=== PATIENT | female | born 1940 | race Caucasian/White ===

== ENCOUNTER 2017-01-10 20:20 | Emergency (ER) | payer MEDICARE ==
[~2017-01-10] VITALS: Ht 152.4 cm; Wt 68.6 kg
[2017-01-10 20:23] VITALS: BP 146/96; PULSE 97; RESP 21; O2SAT 96
--- NOTE | 2017-01-10 20:40 | ED.REPORT ---
HPI-Chest Pain 40 and Over Date of Service Jan 10, 2017 ED Provider: Terrance Abreu MD Pt is a 60 y/o female anticoagulated on Warfarin w/ a hx of a-fib, HTN, CHF, recurrent DVT's, presenting to the ED via EMS c/o rapid palpitations onset 1 hour ago. The patient was diagnosed with a-fib recently and has been on Warfarin for many years due to recurrent DVTs. She was placed on Diltiazem 1 month ago. During this episode of palpitations, she experienced associated headache, chest pressure, SOB, nausea. She has also been experiencing progressively worsening fatigue for the past week. Pt denies cough, nasal congestion. She is feeling much improved at time of interview. Nursing Notes Stated Complaint: PALPITATIONS,WEAKNESS Chief Complaint: Dysrhythmia/Cardiac Nursing Notes Reviewed: Yes Allergies: Coded Allergies: Penicillins (Verified Allergy, Intermediate, Rash, 01/10/17) Scheduled Atorvastatin (Lipitor) 20 Mg Tablet 40 MG PO HS Diltiazem (Diltiazem) 120 Mg Tablet 120 MG PO DAILY Indapamide (Indapamide) 1.25 Mg Tablet 0 PO DAILY Losartan Potassium (Losartan Potassium) 50 Mg Tablet 50 MG PO DAILY Warfarin Sodium (Warfarin Sodium) 5 Mg Tablet 10 MG PO daily exc sun, thur Warfarin Sodium (Warfarin Sodium) 2.5 Mg Tablet 12.5 MG PO sun and thurs Scheduled PRN Oxycodone (Roxicodone) 5 Mg Tablet 10 MG PO Q4H PRN PRN For Pain General Time Seen by MD: 20:38 Chief Complaint Other (palps) Hx Obtained From: Patient, EMS Arrived By: Ambulance Sudden in Onset?: Yes Onset Occurred: 1 - 4 hours ago Symptom Duration: 16 - 30 minutes Location: : Substernal Quality: Pressure Radiation: : Does not radiate Severity: Current: Mild Severity: Maximum: Mild Recent Healthcare: Previous diagnosis, Prior workup Similar Sx Previous: Yes Past Medical History Past Medical History A-fib Recurrent DVTs - on Warfarin CHF HTN Past Surgical History Cholecystectomy Hysterectomy Cystocele Rectocele Foot Smoking History Unknown if Ever Smoker Social History Alcohol Use: "Social" Ambulatory Status Independent Review of Systems Constitutional: Reports: Fatigue, Denies: Chills, Fever Respiratory: Reports: Shortness of breath, Denies: Non-productive cough Cardiovascular: Reports: Chest pain, Palpitations GI: Reports: Nausea, Denies: Abdominal pain, Diarrhea, Vomiting Neurologic: Reports: Headache, Lightheaded, Denies: Focal weakness, Numbness Complete sys rev & neg: except as marked. Physical Exam Initial Vital Signs Vital Signs (First) Date Time Temp Pulse Resp B/P Pulse Ox O2 Delivery O2 Flow Rate FiO2 01/10/17 20:23 36.7 97 21 146/96 96 Room Air Initial VS: Reviewed, Vital signs normal Head / Eyes: Atraumatic, Normocephalic, PERRL ENT: Mucous membranes moist, Conjunctiva normal, No scleral icterus Neck: Supple, Full range of motion Extremities: Vascular intact, Neuro intact, No swelling, No tenderness Skin: Warm, Dry, No cyanosis Neurologic: Alert, Oriented, Nonfocal Psychiatric: Mood/affect normal, Behavior normal, Normal thought content General/Constitutional: Awake, Alert, No acute distress, Cooperative, Not toxic appearing Respiratory / Chest: Atraumatic, Breath sounds NL, Breath sounds = bilat, No respiratory distress, No rales, No rhonchi, No wheezing, No retractions, No stridor, No chest tenderness, No chest wall deformity, No crepitus Cardiovascular: Heart rate NL, Heart sounds NL, No gallop, No murmurs, No rubs , Cap refill not delayed, Peripheral circulation NL Heart Rate / Rhythm: Positive: Irreg irregular rhythm Lower Ext Edema: Positive: Bilateral 1+ Abdomen: Atraumatic, Soft, Non-tender, No guarding, No rebound, No distention, No palpable mass Interpretation & Diagnostics Lab Results Interpretation Result Diagram: 01/10/17202401/10/172024 Test 01/10/17 20:25 01/10/17 22:21 White Blood Count 8.1th/mm3 (3.8-10.1) Red Blood Count 4.65mil/mm3 (3.90-5.20) Hemoglobin 13.4g/dL (12.0-15.6) Hematocrit 39.9% (35.0-46.0) Mean Corpuscular Volume 85.8fL (81-100) Mean Corpuscular Hemoglobin 28.8pg (27.0-35.0) Mean Corpuscular Hemoglobin Concent 33.6% (32.0-37.0) Red Cell Distribution Width 14.2% (12.3-15.4) Platelet Count 287bil/L (150-400) Neutrophils (%) (Auto) 55.2% (40-74) Lymphocytes (%) (Auto) 30.8% (14-46) Monocytes (%) (Auto) 8.8% (4-12) Eosinophils (%) (Auto) 4.4% (0-5) Basophils (%) (Auto) 0.7% (0-3) Hold Purple Top Tube Received (Received) Prothrombin Time 28.9sec (8.1-12.5) Prothromb Time International Ratio 2.65ratio Hold Blue Top Tube Received (Received) Sodium Level 135mEq/L (134-144) Potassium Level 3.7mEq/L (3.5-5.2) Chloride Level 95mEq/L (97-108) Carbon Dioxide Level 24mmol/L (18-29) Blood Urea Nitrogen 9mg/dL (8-27) Creatinine 0.55mg/dL (0.57-1.00) Estimat Glomerular Filtration Rate 154mL/min (>59) Glucose Level 102mg/dL (60-99) Calcium Level 9.7mg/dL (8.5-10.1) Magnesium Level 1.6mg/dL (1.6-2.6) Total Bilirubin 0.4mg/dL (0.0-1.2) Aspartate Amino Transf (AST/SGOT) 19U/L (0-50) Alanine Aminotransferase (ALT/SGPT) 13U/L (0-32) Alkaline Phosphatase 71U/L (25-165) Total Protein 7.2g/dL (6.4-8.4) Albumin 4.2g/dL (3.4-5.0) Hold Red Top Tube Received (Received) Hold [place] Top Tube Received (Received) Troponin T 0.010ug/L (0.0-0.011) ECG Interpretation ECG Interpretation: A-fib rate 91 RBBB Time: 21:18 Interpreted by: ED physician Normal ECG Interpretation: No acute ischemic changes X-Ray Chest Interpretation Chest Xray Interpretation: IMPRESSION: No acute disease Dictated by: Bobby Aponte M.D. on 01/10/2017 at 21:18 Approved by: Bobby Aponte M.D. on 01/10/2017 at 21:19 View: Portable, 1 view Interpretation / Wet Read by: Interpret - Radiologist Re-Eval/Medical Decision Med Decision/Clinical Course 77-year-old female history of atrial fibrillation recently diagnosed several weeks ago on warfarin presenting with palpitations earlier today. She felt much better by the time of arrival. Her troponins were negative 2. She is therapeutic INR. EKG unremarkable. She had no RVR while she was here. Patient was discharged home with plans to follow up with primary doctor on Thursday. Return precautions given. Time of Eval: 22:57 Re-Evaluation/Progress Note: Pt rechecked. Discussed negative results. Informed pt of plan for treatment. Pt understands and agrees with plan for treatment. F/U instructions and RTER warnings given. All questions addressed. Counseled Regarding: Diagnosis, Lab results, Need for follow-up, When/why to return to ED Discharge & Departure Primary Impression: Atrial fibrillation Atrial fibrillation type: unspecified Qualified Code: I48.91 - Unspecified atrial fibrillation Additional Impression: Palpitations Disposition: Home Discharge Condition All VS Reviewed: Yes Condition: Stable Patient Instructions: Atrial Fibrillation (ED) Additional Instructions: Your labs and chest x-ray today were normal. Your EKG showed that you were in atrial fibrillation at a low rate. There was no sign of heart attack or heart damage. Return to the emergency department for persistent palpitations, chest pain, trouble breathing, or for other concerning symptoms. Follow-up with your primary care doctor as scheduled on Thursday. Referrals: Josh Nye ND Attestation Portions of this note were transcribed by Steven Spicer. I, Dr. Abreu, personally performed the history, physical exam and medical decision-making; I reviewed and confirmed the accuracy of the information in the transcribed note. Signed by Hodan Hill, 01/10/172129 copies to: Josh Nye ND, Ben M MD Jan 10, 2017 20:40 STEVEN SPICER Jan 10, 2017 21:08
[2017-01-10] MEDS ORDERED: WARF2.5T82 PO (20:43)
[2017-01-10] MEDS ORDERED: OXYC-474 PO (20:43)
[2017-01-10] MEDS ORDERED: WARF5TAB7 PO (20:43)
[2017-01-10] MEDS ORDERED: ATOR20TA PO (20:43)
[2017-01-10] MEDS ORDERED: DILT120T3 PO (20:43)
[2017-01-10] MEDS ORDERED: LOSA50TA37 PO (20:43)
[2017-01-10] MEDS ORDERED: INDA1.252 PO (20:43)
[2017-01-10 20:53] LABS: BASOPHILS % (AUTO) 0.7 % (0-3); EOSINOPHILS % (AUTO) 4.4 % (0-5); MONOCYTES % (AUTO) 8.8 % (4-12); Mean Corpuscular Hemoglobin 28.8 pg (27.0-35.0); Mean Corpuscular Volume 85.8 fL (81-100); NEUTROPHILS % (AUTO) 55.2 % (40-74); Platelet Count 287 bil/L (150-400)
[2017-01-10 21:07] LABS: TROPONIN T < 0.010 ug/L (0.0-0.011)
[2017-01-10 21:15] LABS: Magnesium 1.6 mg/dL (1.6-2.6)
--- NOTE | 2017-01-10 21:20 | DRSVH ---
CORRECTED PATIENT ON 01/12/17 PROCEDURE: X-RAY CHEST ONE VIEW, PORTABLE ([id number]) INDICATIONS: a-fib TECHNIQUE: One view of the chest was acquired. COMPARISON: None. FINDINGS: Surgical changes and devices: None. Lungs and pleura: No pleural effusions or pneumothorax. Lungs are clear. Mediastinum: Mediastinal contours appear normal. Heart size is normal. Bones and chest wall: No suspicious bony lesions. Overlying soft tissues appear unremarkable. Poss ible bone island projecting in the proximal left humerus IMPRESSION: No acute disease Dictated by: Bobby Aponte M.D. on 01/10/2017 at 21:18 Approved by: Bobby Aponte M.D. on 01/10/2017 at 21:19
[2017-01-10 21:24] LABS: INR 2.65 ratio
[2017-01-10 21:30] VITALS: BP 148/93; PULSE 91; RESP 18; O2SAT 95
[2017-01-10 22:30] VITALS: BP 128/76; PULSE 89; RESP 18; O2SAT 94
[2017-01-10 23:16] VITALS: BP 139/97; PULSE 90; RESP 18; O2SAT 93
== END 2017-01-10 23:19 | disposition home or self-care (01) ==
LOC: SED 20:20
DX: I48.91 Unspecified atrial fibrillation (principal); R00.2 Palpitations; I10 Essential (primary) hypertension; I50.9 Heart failure, unspecified; Z86.718 Personal history of other venous thrombosis and embolism; Z79.01 Long term (current) use of anticoagulants; Z88.0 Allergy status to penicillin

== ENCOUNTER 2017-04-21 21:05 | Inpatient (IN) | payer MEDICARE ==
[~2017-04-21] VITALS: Ht 154.9 cm; Wt 72.5 kg
[~2017-04-21 21:05] MED LIST: ATOR20TA PO; DILT120T3 PO; INDA1.252 PO; LOSA50TA37 PO; OXYC-474 PO; WARF2.5T82 PO; WARF5TAB7 PO
[2017-04-21 21:06] VITALS: BP 149/64; PULSE 110; RESP 18; O2SAT 100
[2017-04-21] MEDS ORDERED: DILT120C52 PO (21:14)
[2017-04-21] MEDS ORDERED: LATA2.5D6 BOTH_EYES (21:14)
[2017-04-21] MEDS ORDERED: FLUT16SP NASAL (21:14)
[2017-04-21 21:24] LABS: BASOPHILS % (AUTO) 0.5 % (0-3); EOSINOPHILS % (AUTO) 3.4 % (0-5); MONOCYTES % (AUTO) 6.8 % (4-12); Mean Corpuscular Hemoglobin 29.1 pg (27.0-35.0); Mean Corpuscular Volume 91.6 fL (81-100); NEUTROPHILS % (AUTO) 63.6 % (40-74); Platelet Count 291 bil/L (150-400)
[2017-04-21 21:43] LABS: INR 2.01 ratio
[2017-04-21 22:08] VITALS: BP 132/62; PULSE 91; RESP 16; O2SAT 97
[2017-04-21] MEDS ORDERED: Ondansetron 2 mg/mL 2 mL Inj ONE (22:18)
[2017-04-21] MEDS: HYDROmorphone 0.5 mg/0.5 mL iSecure Syringe IVPUSH PRN ×2 (22:36→23:41)
[2017-04-21 23:00] VITALS: BP 128/56; PULSE 93; RESP 18; O2SAT 97
--- NOTE | 2017-04-21 23:18 | ED.REPORT ---
HPI-GI Bleed Date of Service Apr 21, 2017 ED Provider: Roberth Loza MD The patient is a 77 year old female with a history of PE, CVA, hypertension, and atrial fibrillation on Coumadin who presents to the ED via EMS with hematochezia onset nine days ago. The bleeding was initially heavy with clotting , but has improved since last week. Associated symptoms include diffuse abdominal pain and diarrhea. The patient also became nauseous and vomited this morning. She denies other symptoms. The patient has taken Imodium with some relief. EMS found the patient with a BP of 154/80, a pulse of 100, and otherwise normal vital signs. The patient was seen by her PCP last week who did not want to change her Coumadin dosage until she was seen by a licensed nuclear operator, who she has an appointment with this week. Nursing Notes Stated Complaint: RECTAL BLEEDING, FLUE LIKE SYMPTOMS Chief Complaint: General Complaint Nursing Notes Reviewed: Yes Allergies: Coded Allergies: Penicillins (Verified Allergy, Intermediate, Rash, 01/10/17) Scheduled Atorvastatin Calcium (Atorvastatin Calcium) 10 Mg Tablet 10 MG PO HS Diltiazem ER (Cartia XT) 120 Mg Cap.er.24h 120 MG PO BID Indapamide (Indapamide) 1.25 Mg Tablet 1.25 MG PO DAILY Latanoprost (Latanoprost) 2.5 Ml Drops 1 DROP BOTH_EYES HS Losartan Potassium (Losartan Potassium) 50 Mg Tablet 50 MG PO DAILY Warfarin Sodium (Warfarin Sodium) 5 Mg Tablet 10 MG PO daily except thursday Warfarin Sodium (Warfarin Sodium) 2.5 Mg Tablet 12.5 MG PO thursday Scheduled PRN Fluticasone Propionate (Fluticasone Propionate Nasal) 16 Gm [place].susp 1 SPRAY NASAL DAILY PRN PRN For Congestion Oxycodone (Roxicodone) 5 Mg Tablet 10 MG PO Q4H PRN PRN For Pain General Time Seen by Provider: 22:25 Chief Complaint Chief Complaint: Other (Hematochezia) Hx Obtained From: Patient Arrived By: Walk-in Onset Occurred: More than a week ago... (9 days) Symptom Duration: Since onset Progression Since Onset: Gradually improving Location: : Diffuse Quality: Painful Severity: Current: Moderate Severity: Maximum: Moderate Pertinent Negative: Relieved by nothing Immunizations: Unknown Recent Healthcare: Recent doctor visit Past Medical History Past Medical History Atrial fibrillation PE (2007) CHF HTN CVA (08/2016) Chronic back pain Past Surgical History Cholecystectomy Hysterectomy Cystocele Rectocele Foot Smoking History Unknown if Ever Smoker Social History Alcohol Use: "Social" Ambulatory Status Independent Review of Systems Constitutional: Denies: Fever Respiratory: Denies: Non-productive cough, Shortness of breath GI: Reports: Abdominal pain (Diffuse), Diarrhea, Hematochezia, Nausea, Vomiting Complete sys rev & neg: except as marked. Physical Exam Initial Vital Signs Vital Signs (First) Date Time Temp Pulse Resp B/P Pulse Ox O2 Delivery O2 Flow Rate FiO2 04/21/17 21:06 37.0 110 18 149/64 100 Room Air Initial VS: Reviewed, Vital signs abnormal Head / Eyes: Atraumatic, Normocephalic ENT: Conjunctiva normal, No scleral icterus Neck: Supple, Full range of motion Skin: Warm, Dry, No cyanosis Neurologic: Alert, Oriented, Nonfocal Psychiatric: Mood/affect normal, Behavior normal, Normal thought content General/Constitutional: Awake, Alert, No acute distress Respiratory / Chest: Breath sounds NL, Breath sounds = bilat, No respiratory distress Cardiovascular: Heart rate NL, Heart sounds NL Heart Rate / Rhythm: Positive: Irreg irregular rhythm Lower Ext Edema: Positive: Bilateral 1+, Pitting Abdomen: Soft Tenderness/Guarding/Rebound: Positive: Tender diffuse Interpretation & Diagnostics Lab Results Interpretation Result Diagram: 04/22/17 0440 04/22/17 0440 Test 04/21/17 21:10 Total Bilirubin 0.6mg/dL (0.0-1.2) Aspartate Amino Transf (AST/SGOT) 20U/L (0-50) Alanine Aminotransferase (ALT/SGPT) 17U/L (0-32) Alkaline Phosphatase 72U/L (25-165) Total Protein 6.7g/dL (6.4-8.4) Albumin 3.6g/dL (3.4-5.0) Lab Results Interpretation: Anemia, moderately severe and acute. Hypokalemia. 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 Extrahepatic biliary dilatation, which is nonspecific following cholecystectomy. If there are clinical and laboratory signs of biliary obstruction, an MRCP can be performed to further evaluate. Moderate colonic stool. Report transmitted to the Ed by radiologist Yi Garcia M.D. at 04/22/2017 - 1:16:20 AM PDT Study type: Abdominal CT IV contrast Interpretation / Wet Read by: Interpret - Radiologist Re-Eval/Medical Decision Med Decision/Clinical Course 77-year-old female with a history of atrial fibrillation, colonic polyps, PE, and previous stroke now on Coumadin. She began having red blood per rectum with clots about a week ago. She saw her primary doctor stated that she needed a nonemergent colonoscopy that should wait until she has had further cardiology evaluation of her atrial fibrillation. He further stated that she should continue her Coumadin because of the risk of stroke. Laboratory evaluation showed severe anemia and an INR of 2.01. She was typed and crossed for 2 units and transfused with 4 units of FFP. Her case was discussed Dr. Pathak, gastroenterology. She will be set up for colonoscopy. She will be admitted to the hospitalist service for further evaluation. Source of Hx: Old records Re-Evaluation/Progress : Time of Eval: 23:00 Patient Status: Condition improved Re-Evaluation/Progress Note: Discussed with patient lab results, diagnosis, and plan for CT and admit. Patient agrees with plan for care and all questions were addressed. Consultation #1: Referral / Consult Name: Stanley Pathak MD Call Returned at: 23:10 Supervisor [employer]: Agrees with eval, Agrees with plan Note: GI: Will consult Consultation #2: Referral / Consult Name: Jean Marie Valadez MD Consulted With: Hospitalist Call Returned at: 23:14 Supervisor [employer]: Agrees with eval, Agrees with plan, Accepts admit Counseled Regarding: Diagnosis, Lab results, Need for admission Discharge & Departure Impression: Primary Impression: GI bleed GI bleed type/associated pathology: unspecified gastrointestinal hemorrhage type Qualified Code: K92.2 - Gastrointestinal hemorrhage, unspecified Additional Impressions: Anemia Atrial fibrillation Anticoagulated on Coumadin Disposition: ADMITTED TO HOSPITAL Discharge Condition All VS Reviewed: Yes Condition: Improved Referrals: Josh Nye ND (PCP) Hodan Attestation Portions of this note were transcribed by Simin Fuentes. I, Dr. Loza, personally performed the history, physical exam, and medical decision-making; I reviewed and confirmed the accuracy of the information in the transcribed note. 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 Extrahepatic biliary dilatation, which is nonspecific following cholecystectomy. If there are clinical and laboratory signs of biliary obstruction, an MRCP can be performed to further evaluate. Moderate colonic stool. Report transmitted to the Ed by radiologist Yi Garcia M.D. at 04/22/2017 - 1:16:20 AM PDT Study type: Abdominal CT IV contrast Interpretation / Wet Read by: Interpret - Radiologist Re-Eval/Medical Decision Source of Hx: Old records Re-Evaluation/Progress : Time of Eval: 23:00 Patient Status: Condition improved Re-Evaluation/Progress Note: Discussed with patient lab results, diagnosis, and plan for CT and admit. Patient agrees with plan for care and all questions were addressed. Consultation #1: Referral / Consult Name: Stanley Pathak MD Call Returned at: 23:10 Supervisor [employer]: Agrees with eval, Agrees with plan Note: GI: Will consult Consultation #2: Referral / Consult Name: Jean Marie Valadez MD Consulted With: Hospitalist Call Returned at: 23:14 Supervisor [employer]: Agrees with eval, Agrees with plan, Accepts admit Counseled Regarding: Diagnosis, Lab results, Need for admission Discharge & Departure Impression: Primary Impression: GI bleed GI bleed type/associated pathology: unspecified gastrointestinal hemorrhage type Qualified Code: K92.2 - Gastrointestinal hemorrhage, unspecified Additional Impressions: Anemia Atrial fibrillation Anticoagulated on Coumadin Disposition: ADMITTED TO HOSPITAL Discharge Condition All VS Reviewed: Yes Condition: Improved Referrals: Josh Nye ND (PCP) Hodan Attestation Portions of this note were transcribed by Simin Fuentes. I, Dr. Loza, personally performed the history, physical exam, and medical decision-making; I reviewed and confirmed the accuracy of the information in the transcribed note. Signed by: Hodan Duval, 04/22/2017, 02:20 copies to: Josh Nye ND, Howard L MD Apr 21, 2017 23:17 SIMIN FUENTES Apr 21, 2017 23:26
[2017-04-22] VITALS (23 sets, daily range): BP systolic 107–169; BP diastolic 52–98; PULSE 62–117; RESP 14–20; O2SAT 91–100
[2017-04-22] MEDS ORDERED: Polyethylene Glycol (PEG) 17 Gm Powder PO PRN
[2017-04-22] MEDS ORDERED: Alum-Mag Hydrox-Simeth 30 mL Suspension PO PRN
[2017-04-22] MEDS ORDERED: PEG/Electrolytes 4,000 mL Solution PO ONE (00:05)
[2017-04-22] MEDS ORDERED: HYDROmorphone 1 mg/mL Inj IVPUSH PRN (00:05)
--- NOTE | 2017-04-22 00:34 | PCM.HPMED ---
Subjective Date of Service Apr 22, 2017 Primary Provider: Admitting Physician: Jean Marie Valadez MD Primary Care Physician: Josh Nye ND Attending Physician: Jean Marie Valadez MD Chief Complaint: Bright red blood per rectum History of Present Illness: Mahi Estarda 77-year-old woman with history of pulmonary embolism, CVA, hypertension, atrial fibrillation on Coumadin who presented to the [facility] emergency department via EMS after having hematochezia for over a week. She reports that it started with heavy bleeding and passing of clots but has tapered over the past week. She reportedly has seen her naturopathic physician who recommended she take Imodium for the accompanying diarrhea. In the last day she developed nausea and vomiting without hematemesis. She additionally reports that there have been dark stools without taking iron or Pepto-Bismol. She denies any lightheadedness, dizziness, chest pain, shortness of breath, abdominal pain, no rashes, no headaches she has chronic back pain. In the emergency department 149/64, 110, 18, 37.0 mL, 100% on room air WBC 5.6, hemoglobin 8.7, platelets 291, calcium 3.1, creatinine 0.52, INR 2.01 EKG showed atrial fibrillation with rate of 99, right bundle branch block, comparison to EKG from roughly 3 months ago showed no change. Abdominal CT currently pending Dr. Pathak, gastroenterology insurance consultant who agreed to accept the patient in anticipation of endoscopy tomorrow. Review of Systems: A comprehensive review of systems was conducted with the patient and found to be negative except as above in the history of presenting illness. Allergies Coded Allergies: Penicillins (Verified Allergy, Intermediate, Rash, 01/10/17) Home Medications Scheduled Diltiazem (Diltiazem) 120 Mg Tablet 120 MG PO DAILY Indapamide (Indapamide) 1.25 Mg Tablet 0 PO DAILY Losartan Potassium (Losartan Potassium) 50 Mg Tablet 50 MG PO DAILY Warfarin Sodium (Warfarin Sodium) 5 Mg Tablet 10 MG PO daily exc sun, thur Warfarin Sodium (Warfarin Sodium) 2.5 Mg Tablet 12.5 MG PO sun and thurs Scheduled PRN Oxycodone (Roxicodone) 5 Mg Tablet 10 MG PO Q4H PRN PRN For Pain Miscellaneous Medications Diltiazem ER (Cartia XT) 120 Mg Cap.er.24h Fluticasone Propionate (Fluticasone Propionate Nasal) 16 Gm [place].susp Latanoprost (Latanoprost) 2.5 Ml Drops PMH Atrial fibrillation Pulmonary embolism CVA Hypertension History of diabetes, treated with weight loss. 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 HEENT: Normocephalic, atraumatic, EOMI grossly, mucous membranes moist, neck supple without lymphadenopathy, conjunctiva are pale, sclerae are pale, pupils 3 mm bilaterally, inappropriately constricted to amount of ambient light. Cardiovascular: Irregularly irregular rhythm, rate controlled, unable to appreciate any murmurs clicks or rubs, Pulmonary: Clear to auscultation bilaterally, no W/R/R. Abdominal: Soft to palpation, bowel sounds present 4, no hepatosplenomegaly. Negative rebound. Mild tenderness to epigastrium GI: Inspection of anus did not demonstrate any blood clots, active bleeding, fistulas, strictures, hemorrhoids. Extremities: Bilateral lower extremity edema, mild pitting up to the level of the knee. No sores, wounds, weeping. Neuro: Neurologically grossly intact, strength is equal bilaterally upper and lower extremities. MSK: Able to move extremities on their own volition, strength 5 out of 5 equal bilaterally to upper and lower extremities. Psych: Oriented to person, place, time and situation. Appropriate mood and affect. Lab and Diagnostics Result Diagram: 04/21/17210904/21/172109 X-Rays, CTs and MRIs Abdominal CT pending 12-lead ECG EKG showed atrial fibrillation with rate of 99, right bundle branch block, comparison to EKG from roughly 3 months ago showed no change. Assessment & Plan 77-year-old woman with atrial fibrillation history of strokes and pulmonary embolism anticoagulated INR of 2.0 has had bright red blood per rectum for roughly 9 days found to be anemic hemoglobin 8.7. Acute hemorrhagic anemia, POA, active INR 2.01, hemoglobin 8.7 with concurrent hematochezia. 4 units fresh frozen plasma now Type and cross 2 units Trend H&H every 4 hours Trans-fusion threshold 8.0 or if symptomatic Acute lower gastrointestinal hemorrhage, POA, active History of hematochezia, anticoagulated INR 2.01 Gastroenterology consulted, agrees to see patient Bowel prep with GoLYTELY in anticipation of endoscopy Make nothing by mouth except for bowel prep Abdominal CT now and pending. Permanent atrial fibrillation, rate controlled, POA, active Continue antiarrhythmics: Diltiazem 120 mg by mouth daily, Place on telemetry Hold diuretics(indapamide) in anticipation fluid loss from bowel prep. Chronic hypertension, POA, active Blood pressure has been elevated 149/64, 132/62 Continue losartan from home, 50 mg by mouth daily Chronic opioid use dependence, POA active Currently taking 60 mg oxycodone by mouth a day for chronic back pain Recommend outpatient pain management consultation Possible candidate for Suboxone. Chronic low back pain, POA, active Patient takes oxycodone as above, while nothing by mouth treat with 1 mg hydromorphone IV when necessary every 4 hours, resume outpatient management following by mouth feeds. Patient admitted under inpatient status with expected length of stay > 2 midnights for severity of present symptoms, complexities of treatment plan and risk for adverse events Pain Evaluation: Adequate Pain Control GI Prophylaxis: Not indicated VTE Prophylaxis Indicated: Contraindicated Resuscitation Status: CPR: Attempt Resuscitation Attending Statement The patient was seen and examined together with Dr. Woodward on 04/21 and I agree with the history, exam and plan as outlined in the note above. Otoniel Grover DO Apr 22, 2017 00:33 Jean Marie Valadez MD Apr 22, 2017 03:28
--- NOTE | 2017-04-22 02:00 | NUR ---
ADMIT NOTE Pt arrived to [facility] approx 0120. Pt alert and oriented, generally tired. Pt able to ambulate from stretcher to bed. 1st unit FFP started upon arrival to [facility]. Pt started on Golyte prep. Pt has c/o of "some headache", but states relief of back pains she had c/o in ER. Pt placed on remote telemetry. Continue to monitor. Call light in reach. Intentional rounding.
[2017-04-22] MEDS ORDERED: ATOR10TA66 PO (02:37)
[2017-04-22] MEDS ORDERED: 0.9% Sodium Chloride 250 ML IV ONE (03:30)
[2017-04-22] MEDS: 0.9% Sodium Chloride 1,000 ML IV SCH ×3 (04:05→18:06)
--- NOTE | 2017-04-22 04:21 | NUR ---
FFP ADMINISTRATION Pt had 4 units FFP administered tonight. VSS. Pt tolerated administration, no adverse affects observed at this time.
--- NOTE | 2017-04-22 04:22 | NUR ---
UNABLE TO TOLERATE GOLYTE PREP Pt has been having N/V at home. Pt pre-medicated w/ prn IV zofran at start of Golyte prep. Pt was able to drink approx 500ml. Pt started to retch and had small amt of emesis. Pt generally exhausted and unable to tolerate drinking anymore of prep. Noc resident notified. Continue to monitor.
[2017-04-22 04:56] LABS: BASOPHILS % (AUTO) 0.7 % (0-3); EOSINOPHILS % (AUTO) 3.4 % (0-5); MONOCYTES % (AUTO) 6.1 % (4-12); Mean Corpuscular Hemoglobin 29.3 pg (27.0-35.0); Mean Corpuscular Volume 92.1 fL (81-100); NEUTROPHILS % (AUTO) 55.1 % (40-74); Platelet Count 222 bil/L (150-400)
[2017-04-22 04:58] LABS: APPEARANCE,URINE HAZY (CLEAR,HAZY); COLOR,URINE STRAW (YELLOW); OCCULT BLOOD,URINE TRACE (NEGATIVE); UROBILINOGEN,URINE NORMAL (NORMAL)
[2017-04-22] MEDS ORDERED: 0.9% Sodium Chloride 250 ML IV PRN (05:00)
[2017-04-22] MEDS ORDERED: diphenhydrAMINE 25 mg Capsule PO ONE (05:00)
[2017-04-22 05:12] LABS: INR 1.31 ratio
[2017-04-22] MEDS ORDERED: Diltiazem CD 120 mg ER24 Capsule PO SCH (08:30)
[2017-04-22] MEDS ORDERED: DILTIAZEM 120 MG PO SCH (08:30)
[2017-04-22] MEDS ORDERED: Propofol 10 mg/mL 20 mL Inj ONE (10:06)
[2017-04-22] MEDS: Fluticasone 0.05% 15 Spray/2 Gm 16 Gm Nasal Spray NOSTRIL SCH (10:12)
--- NOTE | 2017-04-22 10:26 | DRSVH ---
PROCEDURE: CT ABDOMEN AND PELVIS WITH CONTRAST ([id number]) INDICATIONS: abdominal pain and rectal bleeding TECHNIQUE: After the administration of intravenous contrast, 5 mm thick sections acquired from the diaphragm to the symphysis. 5 mm coronal and sagittal reformats were acquired. For radiation dose reduction, the following was used: automated exposure control, adjustment of mA and/or kV according to patient siz e. COMPARISON: None. FINDINGS: Image quality: Excellent. ABDOMEN: Lung bases: Lung bases are clear. Heart size is normal. Solid organs: Liver and spleen are normal in size and enhancement. Gallbladder has been removed. Th ere is mild prominence of the common bile duct. Pancreas enhances normally. No adrenal nodules. Kid neys demonstrate normal size and enhancement, without hydronephrosis. Peritoneum and bowel: Bowel loops demonstrate normal wall thickness and caliber. No free fluid or a ir. Prominent stool is present without obstruction. Nodes and vessels: No retroperitoneal or mesenteric adenopathy by size criteria. Aorta demonstrates mild ectasia within the abdomen bdominal portion measuring 32 mm in greatest transverse dimension. T he inferior vena cava is normal in size. Miscellaneous: No ventral hernias. PELVIS: Genitourinary: Bladder wall thickness is normal. Miscellaneous: No inguinal hernias or adenopathy. Bones: No suspicious bony lesions. No vertebral body compression fractures. IMPRESSION: 1. Prominent stool consistent with constipation. No obstruction. 2. Cholecystectomy with mild prominence of the common bile duct, possibly related to postsurgical letha nge. If clinical concern persists, recommend correlation with laboratory enzymes values. Dictated by: Carrie Buck M.D. on 04/22/2017 at 10:21 Approved by: Carrie Buck M.D. on 04/22/2017 at 10:25
[2017-04-22] MEDS ORDERED: Potassium Chloride Inj 20 MEQ in Dextrose 5% 250 ML IV ONE (11:30)
[2017-04-22] MEDS ORDERED: MeTOProlol 1 mg/mL 5 mL Inj IVPUSH STA (12:21)
--- NOTE | 2017-04-22 12:31 | PCM.CHPCAR ---
Consult Subjective Date of service Apr 22, 2017 Date of admit Apr 21, 2017 at 23:50 Provider Requesting Consult Requesting Provider: Dayton Carias DO Primary Care Physician Primary Care Physician: Josh Nye ND Chief Complaint Lower GI bleed. History of Present Illness This is a 77 y/o female with recently diagnosed Afib and prior to this a CVA which is felt to be 2/2 to afib. She was already on warfarin for history of PE back in 2007. Her INR was subtherapeutic when she present to [facility] urgent care clinic. She had an event monitor which showed afib. She is on Dilt CD 120 mg twice a day. Her afib is RVR at this time. She was admitted for most likely lower GI bleed. Her Hgb is 7.1. On admission it was around 8.5. She is experiencing N/V. She denies any symptoms in regards with her afib at this moment. She had a low risk pharmaceutical stress MIBI just a couple of months ago and her echocardiogram showed normal LVEF w/o any significant structural HD. I was asked by gastroenterology to clear the patient for you upper and lower endoscopy. She has recently established with Dr. Gan for her a-fib. Review of Systems General: Reports: Energy Fatigue Ears, Nose, Mouth & Throat: Denies: Any hearing loss Epistaxis or hoarseness Respiratory: Denies: Dyspnea supine Orthopnea or PND Significant dyspnea Cardiovascular: Reports: Atrial Fibrillation Denies: Chest Discomfort Presyncope Gastrointestinal: Reports: Ulcers or GI blood loss Genitourinary: Denies: Urinary symptoms Musculoskeletal: Denies: Significant joint or back problems Significant myalgias Neurological: Reports: Any history of stroke/TIA symptoms Psychiatric: Denies: Anxiety Depression Endocrine: Reports: Heat or cold intolerance Integumentary: Reports: Any change in hair or nails Hematologic/Immunologic: Reports: Recent history of anemia PMH Past Medical History Atrial fibrillation Pulmonary embolism CVA Hypertension History of diabetes, treated with weight loss. Past Surgical History Rectocele, cystocele repair Cholecystectomy hysterectomy Total foot repair secondary from trauma Hernia repair Scheduled Atorvastatin Calcium (Atorvastatin Calcium) 10 Mg Tablet 10 MG PO HS (Reported) Diltiazem ER (Cartia XT) 120 Mg Cap.er.24h 120 MG PO BID (Reported) Indapamide (Indapamide) 1.25 Mg Tablet 1.25 MG PO DAILY (Reported) Latanoprost (Latanoprost) 2.5 Ml Drops 1 DROP BOTH_EYES HS (Reported) Losartan Potassium (Losartan Potassium) 50 Mg Tablet 50 MG PO DAILY (Reported) Warfarin Sodium (Warfarin Sodium) 5 Mg Tablet 10 MG PO daily except thursday ( Reported) Warfarin Sodium (Warfarin Sodium) 2.5 Mg Tablet 12.5 MG PO thursday (Reported) Scheduled PRN Fluticasone Propionate (Fluticasone Propionate Nasal) 16 Gm [place].susp 1 SPRAY NASAL DAILY PRN PRN For Congestion (Reported) Oxycodone (Roxicodone) 5 Mg Tablet 10 MG PO Q4H PRN PRN For Pain (Reported) Discontinued Medications Atorvastatin (Lipitor) 20 Mg Tablet 40 MG PO HS (Reported) Diltiazem (Diltiazem) 120 Mg Tablet 120 MG PO DAILY (Reported) Current Inpatient Medications Current Medications Hydromorphone HCl 0.5 mg Q15MIN PRN IVPUSH Last administered on 04/21/17 23:41 ; Admin Dose 0.5 MG; Start 04/21/17 at 22:30; Stop 04/22/17 at 04:00; Status DC Al Hydrox/Mg Hydrox/Simethicone 30 ml Q6H PRN PO; Start 04/22/17 at 00:00 Ondansetron HCl 4 to 8 mg Q4H PRN IVPUSH Last administered on 04/22/17 01:58; Admin Dose 4 MG; Start 04/22/17 at 00:00 Senna 17.2 mg BID PRN PO; Start 04/22/17 at 00:00 Polyethylene Glycol 17 gm DAILY PRN PO; Start 04/22/17 at 00:00 Hydromorphone HCl 1 mg 1 mg Q4H PRN IVPUSH Last administered on 04/22/17 09:06 ; Admin Dose 1 MG; Start 04/22/17 at 00:05 Sodium Chloride 1,000 ml @ 100 mls/hr Q10H IV Last administered on 04/22/17 04 :05; Admin Dose 100 MLS/HR; Start 04/22/17 at 00:10 Fluticasone Propionate 1 spray DAILY NOSTRIL Last administered on 04/22/17 10: 12; Admin Dose 1 SPRAY; Start 04/22/17 at 08:30 Latanoprost 1 drop ASDIRECTED BOTH_EYES; Start 04/22/17 at 00:40 Losartan Potassium 50 mg DAILY PO Last administered on 04/22/17 10:12; Admin Dose 50 MG; Start 04/22/17 at 08:30 Diltiazem HCl 120 mg DAILY PO Last administered on 04/22/17 10:12; Admin Dose 120 MG; Start 04/22/17 at 08:30 Non-Formulary Medication 120 mg DAILY PO; Start 04/22/17 at 08:30; Stop at 08:30; Status DC Acetaminophen 650 mg 650 mg Q6H PRN PO Last administered on 04/22/17 04:44; Admin Dose 650 MG; Start 04/22/17 at 04:35 Sodium Chloride 250 ml @ 10 mls/hr Q24H PRN IV; Start 04/22/17 at 05:00 Allergies: Coded Allergies: Penicillins (Verified Allergy, Intermediate, Rash, 01/10/17) Family History Family History Father when patient was 4 years old after tree fell on him at work as a program planner Mother had bone cancer with metastases from complications of 56 years old Sister from breast cancer Other sister from coronary artery disease status post bypass Brother coronary artery disease status post coronary artery bypass Social History Hx Alcohol Use: Yes (occasional)Hx Substance Use: No Smoking Status: Former Smoker Living Arrangement: Independent Senior Living Exam Vital Signs Vital Sign - Last Date Time Temp Pulse Resp B/P Pulse Ox O2 Delivery O2 Flow Rate FiO2 04/22/17 11:31 36.8 110 14 130/78 04/22/17 05:45 95 Room Air Intake and Output 04/21/17 04/21/17 04/22/17 Cumulative From/Thru 15:00 23:00 07:00 04/21/17 21:06 - 04/22/17 05:23 Intake Total 1976 ml 1976 ml Output Total 700 ml 700 ml Balance 1276 ml 1276 ml Intake Oral 500 ml 500 ml IV Total 129 ml 129 ml FFP 1347 ml 1347 ml Output Urine Total 700 ml 700 ml # Bowel Movements 1 1 General: Pleasant Cooperative Mildly obese Skin: Warm & dry to touch Head: Normocephalic Eye: EOMS intact No arcus or xanthelasma Neck: No JVD No bruits Ears, Nose & Throat: Ears no gross abnormalities Nose no gross abnormalities Chest: Clear auscultation w/o rales/wheeze Cardiac: Irregularly irregular rhythm No S3 or S4 No murmurs Pulses: Pulses full/equal all extremities Abdomen: Soft, non-distended, non-tender Without masses or organomegally Rectal: Stool postive for blood Extremities: Warm w/o deformities,erythema noted Neurological: Alert & oriented No gross motor or sensory deficits Psychological: Affect & interaction appropriate Lab and Diagnostics Labs CBC Test 04/22/17 04:40 White Blood Count 4.4th/mm3 (3.8-10.1) Red Blood Count 2.42mil/mm3 (3.90-5.20) Hemoglobin 7.1g/dL (12.0-15.6) Hematocrit 22.3% (35.0-46.0) Mean Corpuscular Volume 92.1fL (81-100) Mean Corpuscular Hemoglobin 29.3pg (27.0-35.0) Mean Corpuscular Hemoglobin Concent 31.8% (32.0-37.0) Red Cell Distribution Width 15.9% (12.3-15.4) Platelet Count 222bil/L (150-400) Neutrophils (%) (Auto) 55.1% (40-74) Lymphocytes (%) (Auto) 34.7% (14-46) Monocytes (%) (Auto) 6.1% (4-12) Eosinophils (%) (Auto) 3.4% (0-5) Basophils (%) (Auto) 0.7% (0-3) CMP Test 04/21/17 21:10 04/22/17 04:40 Total Bilirubin 0.6mg/dL Aspartate Amino Transf (AST/SGOT) 20U/L Alanine Aminotransferase (ALT/SGPT) 17U/L Alkaline Phosphatase 72U/L Total Protein 6.7g/dL Albumin 3.6g/dL Sodium Level 142mEq/L Potassium Level 3.2mEq/L Chloride Level 103mEq/L Carbon Dioxide Level 27mmol/L Blood Urea Nitrogen 9mg/dL Creatinine 0.47mg/dL Estimat Glomerular Filtration Rate 184mL/min Glucose Level 91mg/dL Calcium Level 9.5mg/dL Result Diagram: 04/22/17 04404/[id number]/17439 Additional Diagnostics: Echo 07/27/2017 Showed normal LVEF, grade II diastolic dysfunction, no shunting on bubble study , no significant valvular HD. Echo 12/2016 Showed no significant changes since prior echo. evidence for severe biatrial chamber enlargement Assessment & Plan Problems: (1) Atrial fibrillation Qualifiers: Atrial fibrillation type: chronic Qualified Code: I48.2 - Chronic atrial fibrillation Plan: Currently with a little afib with RVR. We will try a little of IV metoprolol and see how she responds. If she responds nicely, then we start her on oral metoprolol XL 25 mg twice a day and titrate according to HR and BP. Nevertheless, she may go ahead with endoscopy even in the presence of mild RVR. She has had a prior stress test and echocardiogram which showed no evidence for significant myocardial ischemia or structural heart disease. I discussed about a NOAC instead of warfarin, give that they typically are more reliable with providing therapeutic anticoagulation than warfarin. She will think about it. She will need to resume warfarin or start a NOAC given her history of multiple CVAs noted on a brain MRI at [facility]. If she has recurrent GI bleeds then one may consider a Watchman device (occludes atrial appendage) which would eventually allow her to come off of anticoagulation down the road. Also, this depends if she needs to continue with warfarin or NOAC for distant history of PE which seems to me that she should have come off of anticoagulation a long time ago just for uncomplicated PE. Status: Chronic ICD Code: I48.91 (2) GI bleed Qualifiers: GI bleed type/associated pathology: unspecified gastrointestinal hemorrhage type Qualified Code: K92.2 - Gastrointestinal hemorrhage, unspecified Status: Acute ICD Code: K92.2 (3) Anticoagulated on Coumadin Status: Acute ICD Code: Z51.81 (4) Anemia Status: Acute ICD Code: D64.9 Pain Evaluation: Adequate Pain Control VTE Prophylaxis Indicated: Contraindicated Resuscitation Status: CPR: Attempt Resuscitation Time spent 60 minutes Krish Redd MD Apr 22, 2017 12:31
[2017-04-22] MEDS ORDERED: Digoxin 0.25 mg/mL 2 mL Inj IV ONE (12:55)
--- NOTE | 2017-04-22 13:38 | CONS ---
[address] [address] CONSULTATION REPORT PATIENT: ITALO DUFF : 1940 MR#: [id number] ADMIT: 04/21/2017 JOB ID: [id number] DATE OF SERVICE: 04/22/2017 It was a pleasure seeing the patient at [facility] for evaluation of rectal bleeding. This is a 77-year-old lady who has history of a pulmonary embolism, CVA, AFib on Coumadin, who came to the emergency department because of one week of hematochezia. Essentially what happened was she was in her usual state of health last week and she typically is constipated. However, sometime last week, she had a bowel movement and then she only saw blood coming out. The episodes of blood were multiple throughout the day and this continued for about three days and it slowly started tapering off. She is also on Coumadin. She contacted her naturopathic physician who recommended she should take Imodium due to the diarrhea. Then, in the past few days, she started developing nausea, vomiting but no blood in the vomitus. She could not keep anything down and she was not feeling well. Because of the nausea, vomiting and she still had persistent bleeding intermittently which is significantly less than before, she came to the emergency department. In the emergency department, she was noted to be a little tachycardic with hemoglobin 8.[address] a CT scan which showed a prominent stool consistent with constipation. Cholecystectomy with mild prominence of common bile duct probably due to cholecystectomy. Her hemoglobin in the ED went from 8.7 to 7.1. INR was 2 and it is 1.31 this morning. PAST MEDICAL HISTORY: 1. AFib. 2. Pulmonary embolism. 3. CVA. 4. Hypertension. 5. Diabetes. PAST SURGICAL HISTORY: 1. Rectocele/cystocele repair. 2. Cholecystectomy. 3. Hysterectomy. 4. Foot surgery repair. 5. Hernia repair. FAMILY HISTORY: Father is a electrode cleaning machine operator. Breast cancer. Occasionally uses alcohol. No tobacco or marijuana use. No drug use. CURRENT MEDICATION: Include diltiazem, losartan, Flonase, Dilaudid, Tylenol, Zofran, potassium, Zelex, polyethylene glycol, senna and Maalox. PHYSICAL EXAMINATION: The patient was alert, oriented, does appear comfortable. Temperature 36.8, pulse 110, blood pressure 130/78. Pulse 14. Head and neck: No icterus. No lymphadenopathy. Lungs clear. Cardiovascular: Irregular with normal S1, S2. Abdomen: Soft, nontender, nondistended with normoactive bowel sounds. Extremities: No pitting edema of the ankles. Skin shows no jaundice. IMPRESSION: This is a lady with nausea, vomiting for the past few days and had bloody diarrhea for past several days, but it has slowed down quite a bit. She was still having blood coming out of her rectum according to the patient as of yesterday. They tried prepping her for colonoscopy but she vomited the GoLYTELY prep and she does not want to drink the GoLYTELY. Her last colonoscopy was five years ago and she does not want to proceed with colonoscopy. Because of the nausea, vomiting, we could do an upper endoscopy. But most likely this was a diverticular bleed. I would recommend, because of underlying cardiac issue, her hemoglobin should be around 9. For now I would also recommend PPI. LAUREND
--- NOTE | 2017-04-22 13:50 | NUR ---
Social Work-initial assessment: Data:See initial assessment. Pt is a 77 y/o female who was admitted on 04/21/17 for lower GI Bleed per H&P. Pt's insurance is [employer] and PCP is Josh Nye MD. EMR Reviewed. Pt's readmission score is 2. SW met with pt to discuss discharge planning, SW Role explained. Pt is alert and oriented. Pt resides in an apartment where she remains independent with ADLs. Pt drives and does have a cane at home. Pt has no HH or SNF history. Pt has no long-term care insurance or VA benefits. SW discussed DPOA/ advanced directive, pt confirms she has completed this, SW encouraged a copy to be brought in. Pt anticipates to return home at discharge and states her granddaughter will provide transport home at discharge. SW placed a call to granddaminal Pérez [phone] who confirms the above information and states she will be transport home at discharge. SW provided phone number and plan on white board in room. No anticipated discharge needs. SW will continue to follow if needs arise. Assessment:Pt who is independent at baseline. Plan:Pt to discharge home when medically stable via POV. No anticipated discharge needs. SW will continue to follow if needs arise. KASSI Dash Addendum: 04/22/17 at 1401 by TIM PHILLIPS SS Amended: Links added.
[2017-04-22] MEDS: MeTOProlol XL 25 mg ER24 Tablet PO SCH ×2 (14:02→20:24)
--- NOTE | 2017-04-22 15:47 | PCM.PNMED ---
Subjective Date of Service Apr 22, 2017 Subjective Patient was stable overnight medically, is morning reports nonbloody bowel movement. She was however very nauseated and unable to tolerate GoLYTELY preparation. Currently denying any fever chills or sweats. She has continued to deny any abdominal pain. She has had intermittent runs of tachycardia, of which is not aware she is denying any palpitations or sensations of chest pain or pressure. Exam Vital Signs Vital Sign - Last Date Time Temp Pulse Resp B/P Pulse Ox O2 Delivery O2 Flow Rate FiO2 04/22/17 13:54 104 04/22/17 12:22 36.7 16 146/88 92 Room Air Intake and Output 04/21/17 04/21/17 04/22/17 Cumulative From/Thru 15:00 23:00 07:00 04/21/17 21:06 - 04/22/17 05:23 Intake Total 1976 ml 1976 ml Output Total 700 ml 700 ml Balance 1276 ml 1276 ml Intake Oral 500 ml 500 ml IV Total 129 ml 129 ml FFP 1347 ml 1347 ml Output Urine Total 700 ml 700 ml # Bowel Movements 1 1 General: Alert, Oriented X3, Cooperative, No Acute Distress Mouth: Mucous Membr Moist/Cerulean Cardiovascular: Other (irregular rate with a rhythm of approximately 100 during my evaluation) Abdomen: Non-tender, Non-distended Neurological: Grossly Neurologically Intact IVs and Medications Medications Reviewed: Medications were reviewed in detail Lab and Diagnostics Result Diagram: 04/22/17 0440 04/22/17 0440 X-Rays, CTs and MRIs Abdominal CT pending 12-lead ECG EKG showed atrial fibrillation with rate of 99, right bundle branch block, comparison to EKG from roughly 3 months ago showed no change. Assessment & Plan 77-year-old woman with atrial fibrillation history of strokes and pulmonary embolism anticoagulated INR of 2.0 has had bright red blood per rectum for roughly 9 days found to be anemic hemoglobin 8.7. Acute hemorrhagic anemia, POA, active INR 2.01, hemoglobin 8.7 with concurrent hematochezia. 4 units fresh frozen plasma now Type and cross 2 units Trend H&H every 4 hours Trans-fusion threshold 8.0 or if symptomatic Given patient's inability to tolerate GoLYTELY, and preference, plan for colonoscopy has been at least deferred if not canceled. We will continue to monitor patient for signs of active bleeding. Continue PPI as per GI recommendations Consider discharge home stable H&H in a.m.. Acute lower gastrointestinal hemorrhage, POA, active History of hematochezia, anticoagulated INR 2.01 Gastroenterology consulted, however patient has declined procedure colonoscopy, and GIs deemed upper endoscopy to be of little utility given presentation of hematochezia. Bowel prep with GoLYTELY was not tolerated as noted above Advance diet as tolerated, continue PPI. Permanent atrial fibrillation, rate controlled, POA, active Continue antiarrhythmics: Diltiazem 120 mg by mouth daily, Continue to monitor on telemetry Cardiology has been consulted will trial intravenous metoprolol consideration of initiating oral agent given presence of RVR Chronic hypertension, POA, active Blood pressure has been elevated 149/64, 132/62 Continue losartan from home, 50 mg by mouth daily Chronic opioid use dependence, POA active Currently taking 60 mg oxycodone by mouth a day for chronic back pain Recommend outpatient pain management consultation Chronic low back pain, POA, active Patient takes oxycodone as above, while nothing by mouth treat with 1 mg hydromorphone IV when necessary every 4 hours, resume outpatient management following by mouth feeds. Patient admitted under inpatient status with expected length of stay > 2 midnights for severity of present symptoms, complexities of treatment plan and risk for adverse events Pain Evaluation: Adequate Pain Control GI Prophylaxis: Not indicated Resuscitation Status: CPR: Attempt Resuscitation Time spent 30 minutes Dayton Carias DO Apr 22, 2017 15:47
[2017-04-22] MEDS ORDERED: Lactated Ringer's 1,000 ML IV ONE (16:23)
[2017-04-22] MEDS ORDERED: Lactated Ringer's 1,000 ML IV SCH (16:23)
[2017-04-22] MEDS ORDERED: MetoCLOpramide 5 mg/mL 2 mL Inj IVPUSH PRN (16:25)
[2017-04-22] MEDS ORDERED: Ondansetron 2 mg/mL 2 mL Inj IVPUSH PRN ×2 (16:25)
--- NOTE | 2017-04-22 17:51 | PCM.HPANE ---
Patient Data Date of Service: Apr 22, 2017 Surgeon Admitting Provider:Jean Marie Valadez MD Attending Provider:Jean Marie Valadez MD Primary Care Physician:Josh Nye ND Other Provider:Carrie Jenkins Anesthesia Reason for Visit Lower Gi Bleed Anemia Afib LOWER GI BLEED ANEMIA AFIB Ht/WT & BMI Height (Feet): 5 Height (Inches): 1.00 Weight (Kilograms): 72.500 Body Mass Index 30.18 Allergies Coded Allergies: Penicillins (Verified Allergy, Intermediate, Rash, 01/10/17) Past Anesthesia History Anesthesia History: Denies:: Anesthesia Reactions Diabetes History Hx Diabetes?: No MRSA MRSA: No Medications Hypertension Medication: Yes Home Meds Incl Beta Brooke: No Reported Medications Atorvastatin Calcium 10 Mg [id number] Mg PO HS #90 04/22/17 Latanoprost 2.5 Ml Drops1 Drop BOTH_EYES HS #25 04/21/17 Diltiazem ER (Cartia XT)120 Mg Cap.er.[id number] Mg PO BID #180 04/21/17 Fluticasone Propionate (Fluticasone Propionate Nasal)16 Gm [place].susp1 [place] NASAL DAILY PRN For Congestion #16 04/21/17 Indapamide 1.25 Mg Tablet1.25 Mg PO DAILY #30 TABLET 01/10/17 Oxycodone (Roxicodone)5 Mg [id number] Mg PO Q4H PRN For Pain Ref 0 01/10/17 Losartan Potassium 50 Mg [id number] Mg PO DAILY 01/10/17 Warfarin Sodium 2.5 Mg Jbvmsn25.5 Mg PO thursday 30 Days Ref 0 01/10/17 Warfarin Sodium 5 Mg [id number] Mg PO daily except thursday 30 Days Ref 0 01/10/17 Discontinued Reported Medications Diltiazem 120 Mg Setfpg988 Mg PO DAILY 01/10/17 Atorvastatin (Lipitor)20 Mg Edrwah58 Mg PO HS Ref 0 01/10/17 History History of ENT Problems?: No HEENT History: Denies:: Abnormal Airway Cataracts Difficult Intubation Dysphagia Glaucoma Hearing Problem Sinus Problem TMJ Denture Type: Full- Upper Full- Lower Teeth Condition: No Teeth Hx of Heart Problems?: Yes Cardiovascular History: Positive for:: Congestive Heart Failure Hypertension Other Cardiac History: PE history Hx of Respiratory Problem?: Yes Respiratory History: Positive for:: Asthma Denies:: Tuberculosis Other Resp Pertinent History: Pulmonary embolism Hx Neurologic Problems?: Yes Neurological History: Positive for:: CVA Hx of GI Problems?: Yes Hx of Problems?: No Hx Musculoskeletal Problems?: Yes Musculoskeletal History: Positive for:: Back Injury Hx of Psycho/Social Problems?: No Hx Surgeries?: Yes (connie, hyst, cystocele, rectocele, foot surg, hernia) Hx Any Other Health Problems?: Yes History Blood Transfusions: Positive for:: Accept Blood Products? Denies:: Blood Transfuse Reaction Blood Transfusions Hx Diabetes: No Hx Alcohol Use: Yes (occasional)Hx Substance Use: No Smoking Status: Former Smoker Stop/Bang Treated for Sleep Apnea?: No Do You Have a CPAP Machine?: No S-Snoring: Do You Snore Loudly: No T-Tired: feel tired, fatigued: No O-Obsered: Observed not breath: No P-Blood Pressure: treated: Yes B- Body Mass Index > 35 kg/m2: No A- Age over 50: Yes N- Neck Large Circumference: No G- Gender Male: No JA Total Score: 1 JA Risk Assessment: Low Risk, <3 Yes Risk Assessment Category Category 1A: Patient has history of documented sleep apnea, and HAS NOT received any narcotic, sedative or anesthesia administration during this stay. Category 1B: Patient has history of documented sleep apnea, and HAS received any narcotic , sedative or anesthesia administration during this stay Category 2: Patient has SUSPECTED Obstructive Sleep Apnea, and HAS received any narcotic , sedative or anesthesia administration during this stay. Category 3: Patient has SUSPECTED Obstructive Sleep Apnea and HAS NOT received narcotic, sedative or anesthesia administration during this stay. Category 4: Outpatient in Procedural Areas with known sleep apnea or who screen positive for High Risk via the STOP/BANG questionnaire. Exam Exam Vital Signs Vital Signs Date Time Temp Pulse Resp B/P Pulse Ox O2 Delivery O2 Flow Rate FiO2 04/22/17 16:18 36.9 75 16 143/77 94 Room Air 04/22/17 13:54 104 04/22/17 12:22 36.7 16 146/88 92 Room Air 04/22/17 11:31 36.8 110 14 130/78 04/22/17 09:52 117 General Appearance: Alert, Oriented X3, Cooperative, Mild Distress (headache) HEENT/AIRWAY: MP 2 Lungs: Normal Air Movement Heart: Other (irregular) Meds/Labs/Diagnostics Admission Meds Current Medications Ondansetron HCl (Zofran Inj) 4 mg STK-MED ONCE .ROUTE Last administered on 04/21 22:39; Start 04/21/17 at 22:18; Stop 04/21/17 at 22:22; Status DC Polyethylene Glycol/ Electrolytes 4000 ml 4,000 ml ONCE ONCE PO Last administered on 04/22/17 02:00; Start 04/22/17 at 00:05; Stop 04/22/17 at 00:06 ; Status DC Sodium Chloride (Normal Saline) 1,000 ml @ 100 mls/hr Q10H IV Last administered on 04/22/17 04:05; Start 04/22/17 at 00:10 Fluticasone Propionate (Flonase 0.05% Nasal [place]) 1 spray DAILY NOSTRIL Last administered on 04/22/17 10:12; Start 04/22/17 at 08:30 Losartan Potassium (Cozaar) 50 mg DAILY PO Last administered on 04/22/17 10:12 ; Start 04/22/17 at 08:30 Diltiazem HCl 120 mg 120 mg DAILY PO Last administered on 04/22/17 10:12; Start 04/22/17 at 08:30; Stop 04/22/17 at 12:54; Status DC Sodium Chloride (Normal Saline) 250 ml @ 10 mls/hr Q24H ONCE IV Last administered on 04/22/17 05:33; Start 04/22/17 at 03:30; Stop 04/23/17 at 03:29 Diphenhydramine HCl 25 mg 25 mg ONCE ONCE PO Last administered on 04/22/17 05 :35; Start 04/22/17 at 05:00; Stop 04/22/17 at 05:07; Status DC Potassium Chloride/Dextrose/ Water (Potassium Chloride Inj/D5W) 260 ml @ 130 mls/hr ONCE ONCE IV Last administered on 04/22/17 13:54; Start 04/22/17 at 11 :30; Stop 04/22/17 at 13:29; Status DC Digoxin (LaNOXin Inj) 0.25 mg ONCE ONCE IV Last administered on 04/22/17 13: 54; Start 04/22/17 at 12:55; Stop 04/22/17 at 13:25; Status DC Metoprolol Succinate (Toprol XL) 25 mg BID PO Last administered on 04/22/17t 14 :02; Start 04/22/17 at 12:55 Labs Test 04/21/17 21:10 04/22/17 04:40 04/22/17 04:45 Total Bilirubin 0.6mg/dL (0.0-1.2) Aspartate Amino Transf (AST/SGOT) 20U/L (0-50) Alanine Aminotransferase (ALT/SGPT) 17U/L (0-32) Alkaline Phosphatase 72U/L (25-165) Total Protein 6.7g/dL (6.4-8.4) Albumin 3.6g/dL (3.4-5.0) White Blood Count 4.4th/mm3 (3.8-10.1) Red Blood Count 2.42mil/mm3 (3.90-5.20) Hemoglobin 7.1g/dL (12.0-15.6) Hematocrit 22.3% (35.0-46.0) Mean Corpuscular Volume 92.1fL (81-100) Mean Corpuscular Hemoglobin 29.3pg (27.0-35.0) Mean Corpuscular Hemoglobin Concent 31.8% (32.0-37.0) Red Cell Distribution Width 15.9% (12.3-15.4) Platelet Count 222bil/L (150-400) Neutrophils (%) (Auto) 55.1% (40-74) Lymphocytes (%) (Auto) 34.7% (14-46) Monocytes (%) (Auto) 6.1% (4-12) Eosinophils (%) (Auto) 3.4% (0-5) Basophils (%) (Auto) 0.7% (0-3) Prothrombin Time 14.1sec (8.1-12.5) Prothromb Time International Ratio 1.31ratio Sodium Level 142mEq/L (134-144) Potassium Level 3.2mEq/L (3.5-5.2) Chloride Level 103mEq/L (97-108) Carbon Dioxide Level 27mmol/L (18-29) Blood Urea Nitrogen 9mg/dL (8-27) Creatinine 0.47mg/dL (0.57-1.00) Estimat Glomerular Filtration Rate 184mL/min (>59) Glucose Level 91mg/dL (60-99) Calcium Level 9.5mg/dL (8.5-10.1) Urine Color Straw (YELLOW) Urine Appearance Hazy (CLEAR,HAZY) Urine pH 8.0 (5.0-8.0) Urine Specific [place] 1.010 (1.003-1.035) Urine Protein Negativemg/dL (NEG,TRACE) Urine Glucose (UA) Negativemg/dL (NEGATIVE) Urine Ketones Tracemg/dL (NEGATIVE) Urine Occult Blood Trace (NEGATIVE) Urine Nitrite Positive (NEGATIVE) Urine Bilirubin Negative (NEGATIVE) Urine Urobilinogen Normalmg/dL (NORMAL) Urine Leukocyte Esterase Negative (NEGATIVE) Urine RBC 0-2/hpf (0-2) Urine WBC 0-5/hpf (0-5) Urine Epithelial Cells Few/hpf (NONE-MOD) Urine Crystals None seen (NONE SEEN) Urine Bacteria Many/hpf (NONE-FEW) Urine Hyaline Casts None/lpf (NONE) Urine Granular Casts None seen (NONE SEEN) Urine Waxy Casts None seen (NONE SEEN) Urine Red Blood Cell Casts None seen (NONE SEEN) Urine White Blood Cell Casts None seen (NONE SEEN) Urine Mucus None seen (None Seen) Urine Trichomonas None seen (NONE SEEN) Urine Yeast None (NONE SEEN) Urinalysis Comment None Urine Culture Reflexed Indicated Plan Impression Patient chart reviewed, patient interviewed and anesthestic plan with risks, benefits, and alternatives discussed, and informed consent obtained. ASA Physical Status: ASA3 Severe Disease (CAD,CVA) Anesthetic Plan: MAC Bene/Risks/Altern/Consents: Yes HP Complete Prior to Induction: Yes Gilberto Escamilla MD Apr 22, 2017 17:04
--- NOTE | 2017-04-22 18:08 | PCM.ENDEGD ---
EGD Date of Service: Apr 22, 2017 Physician Stanley Pathak MD Pre Procedure Diagnosis: Nausea vomiting Post Procedure Dx & Findings: Diffuse erosive gastropathy nonobstructing Schatzki's ring with an erosion Procedure Esophagogastroduodenoscopy PROCEDURE IN DETAIL: After proper sedation, Olympus video endoscope was inserted into patient's mouth and esophagus was successfully intubated. Scope introduced esophagus. Esophagus showed normal shiny whitish mucosa consistent with squamous cell component. Z line was at 37 cm from the incisors. 3 cm hiatal hernia noted. There was a nonobstructing Schatzki's ring with small erosion. Biopsies obtained. Scope further advanced to the stomach. The entire stomach had bilious material with atrophy with almost complete disappearance of rugae folds swelling and redness with element of old blood. Biopsies are obtained from the proximal stomach to the distal stomach. Cardia fundus body antrum pylorus were all visualized. Retroflexion was done. Stomach was easily inflated and deflatable using air. Scope further events to the distal duodenum. Duodenum revealed normal villous structures with normal appearing folds without any mass ulcer erosion. Impression Diffuse erosive gastropathy nonobstructing Schatzki's ring with an erosion Recommendation IV PPIs Carafate Liquid diet Colonoscopy if she agrees to drinking the prep. This morning she refused to drink the prep due to the nausea vomiting and did not want to proceed with colonoscopy. Presedation Assessment Risks and Benefits Informed consent was obtained from the patient after all risks and benefits including but not limited to drug reaction, infection, pain, bleeding, perforation, as well as alternatives were discussed. Patient monitoring Continuous pulse oximetry, cardiac monitoring, blood pressure monitoring, IV access, and oxygen at 2L per nasal cannula. Complications There were no periprocedural complications identified. Post Procedure Plan Post Procedure Recommendations 1. Restrict activities today. 2. Resume normal activities in the morning. 3. Resume medications. 4. GERD behavioral modification: - Avoid fatty, acidic, spicy, large meals - Do not lie down after meals - Do not eat or drink anything for at least 2 1/2 hours before going to bed at night - Discontinue tobacco and alcohol - Decrease or avoid caffeine - Avoid chocolate and mints - Decrease weight - Avoid aspirin and non steroidal anti-inflammatory agents (NSAID) such as Aleve, Advil, Mobic, Naproxen, Ibuprofen, etc 5. Add proton pump inhibitor. Take 30 minutes before 1st meal of the day. 6. Patient informed of normal post procedure side effects as bloating, drowsiness, blood streaking in the stool 7. If gastric biopsy reveal H.pylori, continue with appropriate treatment 8. If small bowel biopsy reveals celiac, continue with appropriate treatment 9. Please don't hesitate to call me with any questions Satnley Pathak MD Apr 22, 2017 18:08
[2017-04-22] MEDS ORDERED: Pantoprazole 4 mg/mL 10 mL Inj IVPUSH ONE (18:10)
--- NOTE | 2017-04-22 18:15 | PCM.ANEP1 ---
Post Anesthesia PACU Phase 1 Assessment Date of Service: Apr 22, 2017 Vital Signs Vital Signs Date Time Temp Pulse Resp B/P Pulse Ox O2 Delivery O2 Flow Rate FiO2 04/22/17 18:09 91 16 130/81 92 Room Air 04/22/17 17:40 37.1 68 16 155/98 91 Room Air 04/22/17 16:18 36.9 75 16 143/77 94 Room Air 04/22/17 13:54 104 04/22/17 12:22 36.7 16 146/88 92 Room Air 04/22/17 11:31 36.8 110 14 130/78 Anesthetic Administered: MAC Level of Alertness: Awake, talking MIRELES's with Equal Strength: Yes Pain: Yes Pain Scale Score: 6 Nausea or Vomiting: No CV Function & Hydration Stable: Yes Airway Device: Oxygen Delivery: Room Air Lungs: Normal Air Movement Dermatome Level: Full Sensation PACU Phase 2 Assessment Complications: No Follow up Care: N/A Patient Instructions Provided: N/A Gilberto Escamilla MD Apr 22, 2017 18:14
[2017-04-22] MEDS: Pantoprazole 20 mg ER24 Tablet PO SCH (20:24)
[2017-04-23] VITALS (12 sets, daily range): BP systolic 139–164; BP diastolic 78–96; PULSE 91–131; RESP 16–24; O2SAT 88–98
--- NOTE | 2017-04-23 06:06 | NUR ---
PAIN/OXYGEN NEEDS AT NIGHT Pt has had c/o headache and back pain. Hospitalist paged to order pts home prn pain medications, orders rec'd. Pt has been uncomfortable, tries to sit on couch and try different positions. Pt has rated pain "7" and has stated, "I am so uncomfortable." Prn po pain medications effective after a couple doses. Pt has able to sleep. During the night, when pt asleep, oxygen saturations 88-89% on RA. LS clear to auscultation. Pt placed on 2L during sleep, oxygen saturation improved to low-mid 90s. Continue to monitor. Call light in reach. Bed alarm on. Intentional rounding.
[2017-04-23] MEDS: Pantoprazole 20 mg ER24 Tablet PO SCH ×2 (07:36→20:36)
[2017-04-23] MEDS: MeTOProlol XL 25 mg ER24 Tablet PO SCH ×2 (07:36→21:51)
[2017-04-23] MEDS: Sucralfate 100 mg/mL 10 mL Suspension PO SCH ×3 (07:37→17:22)
[2017-04-23] MEDS: Fluticasone 0.05% 15 Spray/2 Gm 16 Gm Nasal Spray NOSTRIL SCH (07:37)
[2017-04-23 11:09] LABS: BASOPHILS % (AUTO) 0.2 % (0-3); EOSINOPHILS % (AUTO) 0 % (0-5); MONOCYTES % (AUTO) 7.3 % (4-12); Mean Corpuscular Hemoglobin 29.7 pg (27.0-35.0); Mean Corpuscular Volume 91.2 fL (81-100); NEUTROPHILS % (AUTO) 84.8 % (40-74); Platelet Count 278 bil/L (150-400)
--- NOTE | 2017-04-23 12:32 | NUR ---
SOCRATES Signed @ 1205PM
--- NOTE | 2017-04-23 12:54 | PCM.PNMED ---
Subjective Date of Service Apr 23, 2017 Subjective Little weaker than her usual. Appetite still poor. No blood stools noted overnight, no evidence of bleeding. Exam Vital Signs Vital Sign - Last Date Time Temp Pulse Resp B/P Pulse Ox O2 Delivery O2 Flow Rate FiO2 04/23/17 09:10 112 04/23/17 07:31 36.8 24 139/78 94 Nasal Cannula 2.00 Intake and Output 04/22/17 04/22/17 04/23/17 Cumulative From/Thru 15:00 23:00 07:00 04/21/17 21:06 - 04/23/17 06:04 Intake Total 775 ml 978 ml 174 ml 3903 ml Output Total 750 ml 1750 ml 3200 ml Balance 775 ml 228 ml -1576 ml 703 ml Intake Oral 0 ml 100 ml 600 ml IV Total 100 ml 978 ml 74 ml 1281 ml Packed Cells 675 ml 675 ml FFP 1347 ml Output Urine Total 750 ml 1750 ml 3200 ml # Bowel Movements 2 3 General: Oriented X3, Cooperative, Mild Distress Mouth: Mucous Membranes Dry Chest & Lungs: Coarse breath sounds Cardiovascular: Other (elevated rate with irregular rhythm) Abdomen: Non-tender, Non-distended Neurological: Grossly Neurologically Intact IVs and Medications Medications Reviewed: Medications were reviewed in detail Lab and Diagnostics Result Diagram: 04/23/17 1057 04/23/17 1057 X-Rays, CTs and MRIs Abdominal CT pending 12-lead ECG EKG showed atrial fibrillation with rate of 99, right bundle branch block, comparison to EKG from roughly 3 months ago showed no change. Assessment & Plan 77-year-old woman with atrial fibrillation history of strokes and pulmonary embolism anticoagulated INR of 2.0 has had bright red blood per rectum for roughly 9 days found to be anemic hemoglobin 8.7. Acute hemorrhagic anemia, POA, active INR 2.01, hemoglobin 8.7 with concurrent hematochezia. 4 units fresh frozen plasma now Type and cross 2 units Trans-fusion threshold 8.0 or if symptomatic H&H is upper trending hemoglobin 11 today. Given patient's inability to tolerate GoLYTELY, and preference, plan for colonoscopy has been at least deferred if not canceled. We will continue to monitor patient for signs of active bleeding. Continue PPI as per GI recommendations Consider discharge home stable H&H in 1-2 days with improved condition Acute lower gastrointestinal hemorrhage, POA, active History of hematochezia, anticoagulated INR 2.01 Gastroenterology consulted, however patient has declined procedure colonoscopy, and GIs deemed upper endoscopy to be of little utility given presentation of hematochezia. Bowel prep with GoLYTELY was not tolerated as noted above Advance diet as tolerated, continue PPI. Permanent atrial fibrillation, rate controlled, POA, active Continue antiarrhythmics: Diltiazem 120 mg by mouth daily, Continue to monitor on telemetry Cardiology has been consulted will trial intravenous metoprolol consideration of initiating oral agent given presence of RVR Likely plan to restart warfarin therapy time of discharge, after discussing with patient risks and benefits of continued anticoagulation therapy, she would rather protect himself from stroke and risk recurrent GI bleed. Chronic hypertension, POA, active Blood pressure has been elevated 149/64, 132/62 Continue losartan from home, 50 mg by mouth daily Chronic opioid use dependence, POA active Currently taking 60 mg oxycodone by mouth a day for chronic back pain Recommend outpatient pain management consultation Chronic low back pain, POA, active Continue home dosage of oxycodone Patient admitted under inpatient status with expected length of stay > 2 midnights for severity of present symptoms, complexities of treatment plan and risk for adverse events Pain Evaluation: Adequate Pain Control GI Prophylaxis: Not indicated Resuscitation Status: CPR: Attempt Resuscitation Time spent 25 minutes Dayton Carias DO Apr 23, 2017 12:54
[2017-04-23] MEDS ORDERED: Potassium Chloride Inj 20 MEQ in Dextrose 5% 250 ML IV ONE (12:55)
--- NOTE | 2017-04-23 17:58 | NUR ---
Pain/POC The pt continues to have chronic back pain - adequately relieved with 10mg kinjal. H&H is holding. The pt was able to sit up in a chair for meals (full liquid) and is, overall, "feeling better than yesterday". The plan of care is to DC home tomorrow - pt's granddaughter, Elisa, is requesting a 2pm DC so she can come and pick the pt up.
[2017-04-23] MEDS ORDERED: MeTOProlol 1 mg/mL 5 mL Inj IVPUSH ONE (20:15)
--- NOTE | 2017-04-23 20:49 | PCM.PNMED ---
Subjective Date of Service Apr 23, 2017 Subjective Pt feels better and has no vomiting but she still has significant nausea. Exam Vital Signs Vital Sign - Last Date Time Temp Pulse Resp B/P Pulse Ox O2 Delivery O2 Flow Rate FiO2 04/23/17 19:52 37.0 106 18 162/94 92 Nasal Cannula 2.00 Intake and Output 04/22/17 04/22/17 04/23/17 Cumulative From/Thru 15:00 23:00 07:00 04/21/17 21:06 - 04/23/17 06:04 Intake Total 775 ml 978 ml 174 ml 3903 ml Output Total 750 ml 1750 ml 3200 ml Balance 775 ml 228 ml -1576 ml 703 ml Intake Oral 0 ml 100 ml 600 ml IV Total 100 ml 978 ml 74 ml 1281 ml Packed Cells 675 ml 675 ml FFP 1347 ml Output Urine Total 750 ml 1750 ml 3200 ml # Bowel Movements 2 3 Exam Patient is alert and oriented and comfortable but nauseated Head and neck no icterus Lungs some decrease in breath sounds with mild wheezing. Cardiovascular irregular rate and rhythm normal S1-S2 Abdomen soft nontender nondistended with normal bowel sounds Extremities no pitting edema at ankles Skin shows no jaundice. Lab and Diagnostics Result Diagram: 04/23/17 1057 04/23/17 1057 X-Rays, CTs and MRIs Abdominal CT pending 12-lead ECG EKG showed atrial fibrillation with rate of 99, right bundle branch block, comparison to EKG from roughly 3 months ago showed no change. Assessment & Plan 77-year-old woman with atrial fibrillation history of strokes and pulmonary embolism anticoagulated INR of 2.0 has had bright red blood per rectum for roughly 9 days found to be anemic hemoglobin 8.7. Hemoglobin currently stable. Minimal clinical evidence of GI bleeding. She is having bowel movement but does not notice any blood in the stools. She still does not want to drink the GoLYTELY. Therefore she does not proceed with the colonoscopy. She therefore declined to proceed with colonoscopy. Agree with anticoagulation. Follow H&H. Continue PPI. Start Carafate 10 mL 3 times a day. Nausea is still persistent. - Differential gastroparesis due to opiate use. Obtain gastric emptying test. Another differential for persistent nausea is urinary tract infection. UA showed many bacteria. Urine culture was inconclusive currently. GI Prophylaxis: Not indicated Resuscitation Status: CPR: Attempt Resuscitation Stanley Pathak MD Apr 23, 2017 20:49
[2017-04-24] VITALS (8 sets, daily range): BP systolic 120–157; BP diastolic 64–104; PULSE 64–131; RESP 12–20; O2SAT 94–96
[2017-04-24 05:26] LABS: Magnesium 1.7 mg/dL (1.6-2.6)
--- NOTE | 2017-04-24 07:36 | NUR ---
Increased HR Pt HR 130-140 per laser/electro optics technician. ordered Metoprolol 10mg IVP and also to given routine Metoprolol 25mg ER. Pt HR ranged between 110-140 throughout the shift and finally settled to AFIB 110s per laser/electro optics technician. cooked paged reg K 3.1 awaiting response. Care continues.
[2017-04-24] MEDS: Pantoprazole 20 mg ER24 Tablet PO SCH ×2 (08:22→20:23)
[2017-04-24] MEDS: Sucralfate 100 mg/mL 10 mL Suspension PO SCH ×3 (08:22→17:21)
[2017-04-24] MEDS: MeTOProlol XL 25 mg ER24 Tablet PO SCH ×2 (08:22→20:24)
[2017-04-24] MEDS: Fluticasone 0.05% 15 Spray/2 Gm 16 Gm Nasal Spray NOSTRIL SCH (08:28)
[2017-04-24 09:36] LABS: BASOPHILS % (AUTO) 0.2 % (0-3); EOSINOPHILS % (AUTO) 0.4 % (0-5); MONOCYTES % (AUTO) 9.1 % (4-12); Mean Corpuscular Hemoglobin 29.6 pg (27.0-35.0); Mean Corpuscular Volume 93.2 fL (81-100); NEUTROPHILS % (AUTO) 72.7 % (40-74); Platelet Count 251 bil/L (150-400)
--- NOTE | 2017-04-24 10:55 | PCM.PNMED ---
Subjective Date of Service Apr 24, 2017 Subjective Pt still feels nauseated. She is not vomiting and keeping food down but does not have much appetite. Exam Vital Signs Vital Sign - Last Date Time Temp Pulse Resp B/P Pulse Ox O2 Delivery O2 Flow Rate FiO2 04/24/17 08:58 36.7 80 16 120/74 94 Room Air 04/24/17 04:03 2.00 Intake and Output 04/23/17 04/23/17 04/24/17 Cumulative From/Thru 15:00 23:00 07:00 04/21/17 21:06 - 04/24/17 06:45 Intake Total 494 ml 766 ml 5163 ml Output Total 360 ml 1000 ml 4560 ml Balance 134 ml -234 ml 603 ml Intake Oral 225 ml 400 ml 1225 ml IV Total 269 ml 366 ml 1916 ml Packed Cells 675 ml FFP 1347 ml Output Urine Total 360 ml 1000 ml 4560 ml # Voids 2 2 # Bowel Movements 3 Exam Patient is alert oriented and does appear comfortable Head and neck no icterus Lungs clear overall but minimal expiratory wheezing. Cardiovascular regular rate and rhythm, normal S1-S2 Abdomen soft nontender nondistended with normoactive bowel sounds Extremities no pitting edema of the ankles Skin shows no jaundice Lab and Diagnostics Result Diagram: 04/24/17 0440 04/24/17 0440 X-Rays, CTs and MRIs Abdominal CT pending 12-lead ECG EKG showed atrial fibrillation with rate of 99, right bundle branch block, comparison to EKG from roughly 3 months ago showed no change. Assessment & Plan 77-year-old woman with atrial fibrillation history of strokes and pulmonary embolism anticoagulated INR of 2.0 has had bright red blood per rectum for roughly 9 days found to be anemic hemoglobin 8.7. Hemoglobin currently stable. Minimal clinical evidence of GI bleeding. She had no bowel movement. In fact there now concerned about constipation and she is given prune juice and the nurse once her to take stool softeners. She still does not want to drink the GoLYTELY given as of 04/24/2017. I have asked her to let me know if she thinks she could proceed with colonoscopy. I informed her that I will not ask about the colonoscopy again at this point. Therefore she does not proceed with the colonoscopy. She therefore declined to proceed with colonoscopy. Agree with anticoagulation. Follow H&H. Continue PPI. Carafate 10 mL 3 times a day. Nausea is still persistent. - Differential gastroparesis due to opiate use. Obtain gastric emptying test. Would also obtain HIDA scan. If gastric emptying test HIDA scans are on remarkable. Another differential for persistent nausea is urinary tract infection. UA showed many bacteria. Urine culture was inconclusive currently. If we do not have any clear cause with EGD which is already done as well as HIDA asked emptying study and urine study, please consider looking for non-GI causes of nausea. These would include neurological including a brain scan. I will defer this to the primary care service and I spoke with the primary hospitalist. GI Prophylaxis: Not indicated Resuscitation Status: CPR: Attempt Resuscitation Stanley Pathak MD Apr 24, 2017 10:55
[2017-04-24] MEDS ORDERED: Polyethylene Glycol (PEG) 17 Gm Powder PO PRN (11:10)
[2017-04-24] MEDS: Senna-Docusate 8.6-50 mg Tablet PO SCH ×2 (11:37→20:24)
[2017-04-24] MEDS: Heparin 5,000 Unit/mL Inj SUBQ SCH ×2 (11:41→20:23)
--- NOTE | 2017-04-24 13:01 | PATH ---
SURGICAL PATHOLOGY Attending Physician:Stanley Pathak M.D. CASE STATUS: Signed Out PATIENT NAME: ITALO DUFF PID: [id number] : 1940 DATE COLLECTED:04/22/2017 00:00 SPECIMEN: 1: Gastric, Biopsy 2: Esophagus, Biopsy CLINICAL HISTORY: 1. GASTRIC BXS 2. ESOPHAGEAL BXS-[facility] FINAL DIAGNOSIS: 1.GASTRIC BIOPSIES: DIFFUSE MILD CHRONIC GASTRITIS INVOLVING ANTRAL AND FUNDIC MUCOSA. Negative for evidence of Helicobacter on H&E stain. Negative for intestinal metaplasia. Negative for dysplasia and malignancy. 2.ESOPHAGEAL BIOPSIES AT [facility]: FRAGMENT OF SQUAMOUS EPITHELIUM WITH NONSPECIFIC REACTIVE CHANGES. Negative for significant atypia and malignancy. Negative for intraepithelial eosinophils. ICD10 K29.70 GROSS DESCRIPTION: 1. Received in formalin, labeled with the patient' s name and "gastric biopsy", are two pieces olivares, soft tissue measuring from 0.2 x 0.1 x 0.1 cm to 0.4 x 0.3 x 0.2 cm. Totally submitted in cassette 1A. 2. Received in formalin, labeled with the patient' s name and "esophagus", is one piece of olivares, soft tissue measuring 0.2 x 0.1 x 0.1 cm. Totally submitted in cassette 2A. [id number] MICRO DESCRIPTION: See diagnosis. ICD-9 CODES: CPT CODES: 1: 77512 2: 85652 Electronically Signed Out Isaac Colon MD [facility] Pathology [facility] [address], [place] [address] Technical component performed at [facility], [address], [place], [address]
--- NOTE | 2017-04-24 13:01 | PCM.PNMED ---
Subjective Date of Service Apr 24, 2017 Subjective No nausea reported today, patient is tolerating clear liquid diet. Still remains significantly more fatigued than her baseline. Denies any recurrence of bloody stools. Exam Vital Signs Vital Sign - Last Date Time Temp Pulse Resp B/P Pulse Ox O2 Delivery O2 Flow Rate FiO2 04/24/17 11:49 37.2 86 12 130/76 94 Room Air 04/24/17 04:03 2.00 Intake and Output 04/23/17 04/23/17 04/24/17 Cumulative From/Thru 15:00 23:00 07:00 04/21/17 21:06 - 04/24/17 06:45 Intake Total 494 ml 766 ml 5163 ml Output Total 360 ml 1000 ml 4560 ml Balance 134 ml -234 ml 603 ml Intake Oral 225 ml 400 ml 1225 ml IV Total 269 ml 366 ml 1916 ml Packed Cells 675 ml FFP 1347 ml Output Urine Total 360 ml 1000 ml 4560 ml # Voids 2 2 # Bowel Movements 3 Exam General: Oriented X3, Cooperative, Mild Distress Mouth: Mucous Membranes Dry Chest & Lungs: Coarse breath sounds Cardiovascular: Elevated rate with irregular rhythm Abdomen: Non-tender, Non-distended Neurological: Grossly Neurologically Intact IVs and Medications Medications Reviewed: Medications were reviewed in detail Lab and Diagnostics Result Diagram: 04/24/170 04/24/17 0440 X-Rays, CTs and MRIs Abdominal CT pending 12-lead ECG EKG showed atrial fibrillation with rate of 99, right bundle branch block, comparison to EKG from roughly 3 months ago showed no change. Assessment & Plan 77-year-old woman with atrial fibrillation history of strokes and pulmonary embolism anticoagulated INR of 2.0 has had bright red blood per rectum for roughly 9 days found to be anemic hemoglobin 8.7. # Acute hemorrhagic anemia, POA, active INR 2.01, hemoglobin 8.7 with concurrent hematochezia. 4 units fresh frozen plasma now Type and cross 2 units Trans-fusion threshold 8.0 or if symptomatic H&H is upper trending hemoglobin 11 today. Given patient's inability to tolerate GoLYTELY, and preference, plan for colonoscopy has been at least deferred if not canceled. We will continue to monitor patient for signs of active bleeding. Continue PPI as per GI recommendations Consider discharge home stable H&H in 1-2 days #Acute lower gastrointestinal hemorrhage, POA, active History of hematochezia, anticoagulated INR 2.01 Gastroenterology consulted, however patient has declined procedure colonoscopy, and GIs deemed upper endoscopy to be of little utility given presentation of hematochezia. Bowel prep with GoLYTELY was not tolerated as noted above Advance diet as tolerated, continue PPI. #Urinary tract infection/positive urine culture - Patient demonstrated urine culture positive for greater than 100,000 gram- negative rods - Given persistent weakness in ill health in conjunction with this finding which is very consistent for urinary tract infection bleeding prudent to treat at this time - Patient started on Rocephin 1000 mg IV daily, may consider transition to oral therapy and discharge pending sensitivities. #Permanent atrial fibrillation, rate controlled, POA, active Continue antiarrhythmics: Diltiazem 120 mg by mouth daily, Continue to monitor on telemetry Cardiology has been consulted will trial intravenous metoprolol consideration of initiating oral agent given presence of RVR We will restart Warfarin therapy time of discharge, after discussing with patient risks and benefits of continued anticoagulation therapy, she would rather protect himself from stroke and risk recurrent GI bleed. #Chronic hypertension, POA, active Blood pressure has been elevated 149/64, 132/62 Continue losartan from home, 50 mg by mouth daily #Chronic opioid use dependence, POA active Currently taking 60 mg oxycodone by mouth a day for chronic back pain Recommend outpatient pain management consultation Chronic low back pain, POA, active Continue home dosage of oxycodone Disposition: Anticipate discharge home in 1- 2 days with improved by mouth intake and medical stabilization. Pain Evaluation: Adequate Pain Control GI Prophylaxis: Not indicated VTE Mechanical Devices: Intermittant Pneumatic CD Resuscitation Status: CPR: Attempt Resuscitation Time spent 35 minutes Dayton Carias DO Apr 24, 2017 13:01
--- NOTE | 2017-04-24 13:24 | PCM.CONPHA ---
Subjective Lower GI bleed. Reason for Pharmacy Consult: Anticoagulation Management Objective Vital Signs Date Time Temp Pulse Resp B/P Pulse Ox O2 Delivery O2 Flow Rate FiO2 04/24/17 11:49 37.2 86 12 130/76 94 Room Air 04/24/17 08:58 36.7 80 16 120/74 94 Room Air 04/24/17 08:00 131 04/24/17 04:47 116 04/24/17 04:23 116 152/64 04/24/17 04:23 128 142/94 04/24/17 04:03 36.6 100 20 157/104 95 Nasal Cannula 2.00 04/23/17 23:35 36.6 109 16 149/89 91 Nasal Cannula 2.00 04/23/17 20:50 131 164/96 04/23/17 20:40 Supplement Oxygen 04/23/17 19:52 37.0 106 18 162/94 92 Nasal Cannula 2.00 04/23/17 17:32 36.9 123 16 150/90 98 Nasal Cannula 2.00 04/23/17 13:28 37.5 114 16 145/88 93 Nasal Cannula 2.00 Intake and Output 04/22/17 04/23/17 04/24/17 00:00 00:00 00:00 Intake Total 3729 ml 668 ml Output Total 1450 ml 2110 ml Balance 2279 ml -1442 ml Weight (Kilograms): 72.500 Height (Feet): 5 Height (Inches): 1.00 Test 04/21/17 21:10 04/22/17 04:45 04/24/17 04:40 04/24/17 12:36 Total Bilirubin 0.6mg/dL (0.0-1.2) Aspartate Amino Transf (AST/SGOT) 20U/L (0-50) Alanine Aminotransferase (ALT/SGPT) 17U/L (0-32) Alkaline Phosphatase 72U/L (25-165) Total Protein 6.7g/dL (6.4-8.4) Albumin 3.6g/dL (3.4-5.0) Urine Color Straw (YELLOW) Urine Appearance Hazy (CLEAR,HAZY) Urine pH 8.0 (5.0-8.0) Urine Specific [place] 1.010 (1.003-1.035) Urine Protein Negativemg/dL (NEG,TRACE) Urine Glucose (UA) Negativemg/dL (NEGATIVE) Urine Ketones Tracemg/dL (NEGATIVE) Urine Occult Blood Trace (NEGATIVE) Urine Nitrite Positive (NEGATIVE) Urine Bilirubin Negative (NEGATIVE) Urine Urobilinogen Normalmg/dL (NORMAL) Urine Leukocyte Esterase Negative (NEGATIVE) Urine RBC 0-2/hpf (0-2) Urine WBC 0-5/hpf (0-5) Urine Epithelial Cells Few/hpf (NONE-MOD) Urine Crystals None seen (NONE SEEN) Urine Bacteria Many/hpf (NONE-FEW) Urine Hyaline Casts None/lpf (NONE) Urine Granular Casts None seen (NONE SEEN) Urine Waxy Casts None seen (NONE SEEN) Urine Red Blood Cell Casts None seen (NONE SEEN) Urine White Blood Cell Casts None seen (NONE SEEN) Urine Mucus None seen (None Seen) Urine Trichomonas None seen (NONE SEEN) Urine Yeast None (NONE SEEN) Urinalysis Comment None Urine Culture Reflexed Indicated White Blood Count 9.1th/mm3 (3.8-10.1) Red Blood Count 3.65mil/mm3 (3.90-5.20) Hemoglobin 10.8g/dL (12.0-15.6) Hematocrit 34.0% (35.0-46.0) Mean Corpuscular Volume 93.2fL (81-100) Mean Corpuscular Hemoglobin 29.6pg (27.0-35.0) Mean Corpuscular Hemoglobin Concent 31.8% (32.0-37.0) Red Cell Distribution Width 15.7% (12.3-15.4) Platelet Count 251bil/L (150-400) Neutrophils (%) (Auto) 72.7% (40-74) Lymphocytes (%) (Auto) 17.5% (14-46) Monocytes (%) (Auto) 9.1% (4-12) Eosinophils (%) (Auto) 0.4% (0-5) Basophils (%) (Auto) 0.2% (0-3) Sodium Level 142mEq/L (134-144) Potassium Level 3.1mEq/L (3.5-5.2) Chloride Level 101mEq/L (97-108) Carbon Dioxide Level 27mmol/L (18-29) Blood Urea Nitrogen 10mg/dL (8-27) Creatinine 0.48mg/dL (0.57-1.00) Estimat Glomerular Filtration Rate 180mL/min (>59) Glucose Level 94mg/dL (60-99) Calcium Level 9.3mg/dL (8.5-10.1) Magnesium Level 1.7mg/dL (1.6-2.6) Prothrombin Time 9.7sec (8.1-12.5) Prothromb Time International Ratio 0.91ratio Assessment/Plan Assessment/Plan Warfarin re-start post GI-bleed Indication: A.fib, history of DVTs Goal INR: 2-3 Home dose: 10mg daily except 12.5mg on Sundays Today's INR 0.91 Current DVT prophylaxis: heparin 1000 IU Q8H Assessment/Plan: * Restarting at 10mg today per home dose * Current drug interaction with ceftriaxone * Pharmacy to monitor INR and dose warfarin Shannan Mak Pharm.D Apr 24, 2017 13:24
[2017-04-24 13:39] LABS: INR 1.29 ratio
--- NOTE | 2017-04-24 13:55 | NUR ---
NUTRITION ASSESSMENT: ASSESS: Pt is a 77yo F admitted for possible lower gi bleed and anemia. GI is following. Pt declined to drink the bowel prep for colonoscopy so that has been cancelled. Pt has had persistent nausea and vomiting over the last couple days. Today she has not have any emesis but continues to have persistent nausea. Plan is for HIDA scan and gastric emptying study today. She is on a Full liquid diet with poor PO at 0-15% x3 days. Pt reported that her appetite is starting to come back. PMHX: Afib, PE, CVA, HTN, DM LABS: Reviewed. K 3.1, facilities locator .48, Alb 3.6 MEDS: Reviewed. senna GI: BMx3 04/22 SKIN: no major issues CURRENT WTS: 72.5kg, BMI 30.2kg/m2, IBW: 47.7kg DIET: Full Liquid, PO 0-15% EST. NEEDS: BMI Kcals: 1450-1595kcal/day (20-22kcal/kg) Pro: 60-75g/day (1.2-1.5g/kg IBW) NUTRITION DIAGNOSIS: 1.) Inadequate oral intake related to altered gi function as evidence by poor PO intake and persistent n/v. NUTRITION INTERVENTION: 1.) Discussed foods that pt could try now that her diet has been advanced to [place]. Pt agreed to try Ensure CL (pt does not like Ensure) and she likes Cottage cheese with peaches and mashed potatoes. Encouraged pt to have family bring in food that she likes and she said she would ask her family to bring her in a milkshake. 2.) Advance diet when medically appropriate MONITOR / EVAL: PO, gi, diet advc, wt, labs, POC, nutrition status. Will continue to monitor per high nutrition risk guidelines
[2017-04-24] MEDS: cefTRIAXone Inj 1,000 MG in Dextrose 5% Minibag Plus 50 ML IV SCH (14:29)
--- NOTE | 2017-04-24 18:28 | NUR ---
HR/Diet Pt with afib, on tele. RN recd a call of HR fluctuating between 80-140s. MD notified. Pt asymptomatic. HR irrelevant to activity, at times pt was resting, other times up in bathroom. Pts diet advanced at dinner time, consumed 25%. Tolerated the change well. States to not be hungry. Denies nausea. Bed in low position, 2 rails up, will continue to monitor.
[2017-04-25] VITALS (9 sets, daily range): BP systolic 108–147; BP diastolic 71–94; PULSE 77–115; RESP 16–18; O2SAT 94–100
[2017-04-25 04:05] LABS: BASOPHILS % (AUTO) 0.5 % (0-3); EOSINOPHILS % (AUTO) 3.6 % (0-5); MONOCYTES % (AUTO) 9.4 % (4-12); Mean Corpuscular Hemoglobin 29.6 pg (27.0-35.0); Mean Corpuscular Volume 89.4 fL (81-100); NEUTROPHILS % (AUTO) 59.8 % (40-74); Platelet Count 271 bil/L (150-400)
[2017-04-25 04:21] LABS: INR 1.25 ratio
[2017-04-25] MEDS: Heparin 5,000 Unit/mL Inj SUBQ SCH ×3 (04:25→22:13)
[2017-04-25] MEDS: Sucralfate 100 mg/mL 10 mL Suspension PO SCH ×3 (07:53→16:13)
[2017-04-25] MEDS: MeTOProlol XL 25 mg ER24 Tablet PO SCH ×2 (07:53→22:13)
[2017-04-25] MEDS: Pantoprazole 20 mg ER24 Tablet PO SCH ×2 (07:53→22:13)
[2017-04-25] MEDS: Senna-Docusate 8.6-50 mg Tablet PO SCH ×2 (07:54→22:13)
[2017-04-25] MEDS: Fluticasone 0.05% 15 Spray/2 Gm 16 Gm Nasal Spray NOSTRIL SCH (07:54)
--- NOTE | 2017-04-25 08:28 | PCM.PHAPRO ---
Progress Date of Service: Apr 25, 2017 Warfarin dosing Date Apr 25 INR 1.29 1.25 INR change -0.04 Warf Dose 10MG 10MG David Tanner Apr 25, 2017 08:28
--- NOTE | 2017-04-25 09:00 | NUR ---
SO[facility] signed KASSI Angel
--- NOTE | 2017-04-25 12:16 | PCM.PNMED ---
Subjective Date of Service Apr 25, 2017 Subjective She is seen today in her room to follow up the lower GI bleed, anemia and Coumadin therapy for her paroxysmal atrial fibrillation. I spoke with her granddaughter Audrey, [phone], who indicated that the patient reported that she was seeing blood in her stools today. She stated that if that was the case she will be willing to talk her grandmother into doing the colonoscopy. We talked about potential days to have that done. I then went back to the patient and was able to confirm in conversation with her and the nurse that the patient was referring to the fact that her stool was Hemoccult positive yesterday, and there has been no visible blood in her stool for 2 days now. She has decided to resume the Coumadin despite the fact that the cause of the lower GI bleeding has not been able to be found. She was not tolerant of the Colyte. Her granddaughter understands that to mean that she was vomiting and so could not take it. She thinks she could talk her into taking it if evidence of bleeding is recurrent. The drop in the hemoglobin is concerning. It is now down to 9.8. Exam Vital Signs Vital Sign - Last Date Time Temp Pulse Resp B/P Pulse Ox O2 Delivery O2 Flow Rate FiO2 04/25/17 08:46 36.4 105 16 108/71 95 Room Air 04/24/17 04:03 2.00 Intake and Output 04/24/17 04/24/17 04/25/17 Cumulative From/Thru 15:00 23:00 07:00 04/21/17 21:06 - 04/25/17 06:28 Intake Total 721 ml 200 ml 6084 ml Output Total 1200 ml 1400 ml 7160 ml Balance -479 ml -1200 ml -1076 ml Intake Oral 550 ml 200 ml 1975 ml IV Total 171 ml 2087 ml Packed Cells 675 ml FFP 1347 ml Output Urine Total 1200 ml 1400 ml 7160 ml # Voids 2 4 # Bowel Movements 3 6 Exam Alert, oriented 3, no apparent distress. She is very focused on going home to her [facility] as soon as possible Her memory and processing are not acting like classic dementia but there seems to be some deficits there nevertheless. Heart is irregularly irregular without murmur Lungs are clear to auscultation bilaterally Abdomen soft, bowel sounds positive, nontender, no organomegaly. Extremities have no ankle edema. IVs and Medications Medications Reviewed: Medications were reviewed in detail Lab and Diagnostics Result Diagram: 04/25/1733904/25/17339 X-Rays, CTs and MRIs Abdominal CT pending 12-lead ECG EKG showed atrial fibrillation with rate of 99, right bundle branch block, comparison to EKG from roughly 3 months ago showed no change. Assessment & Plan 77-year-old woman with atrial fibrillation history of strokes and pulmonary embolism anticoagulated INR of 2.0 has had bright red blood per rectum for roughly 9 days found to be anemic hemoglobin 8.7. # Acute hemorrhagic anemia, POA, active Treatment on the first day INR 2.01, hemoglobin 8.7 with concurrent hematochezia. 4 units fresh frozen plasma now Type and cross 2 units Trans-fusion threshold 8.0 or if symptomatic H&H is upper trending hemoglobin 11 today. Given patient's inability to tolerate GoLYTELY, and preference, plan for colonoscopy has been at least deferred if not canceled. Her granddaughter states she could talk her grandmother into doing the colonoscopy prep if there are signs of dropping hemoglobin/internal bleeding again. We will continue to monitor patient for signs of active bleeding. Continue PPI as per GI recommendations Consider discharge home stable H&H in 1-2 days, today the hemoglobin is not stable. #Acute lower gastrointestinal hemorrhage, POA, active History of hematochezia, anticoagulated INR of 1.25 Gastroenterology consulted, however patient has declined procedure colonoscopy, and GIs deemed upper endoscopy to be of little utility given presentation of hematochezia. Bowel prep with GoLYTELY was not tolerated as noted above, and per family due to the vomiting on that particular day. Continue PPI. #Urinary tract infection/positive urine culture - Patient demonstrated urine culture positive Klebsiella and Escherichia coli sensitive to ceftriaxone. - Given persistent weakness in ill health in conjunction with this finding which is very consistent for urinary tract infection bleeding prudent to treat at this time - Patient continues on Rocephin 1000 mg IV daily, may consider transition to oral therapy at discharge pending sensitivities. #Permanent atrial fibrillation, rate controlled, POA, active Continue antiarrhythmics: Diltiazem 120 mg by mouth daily, Continue to monitor on telemetry Cardiology has been consulted will trial intravenous metoprolol consideration of initiating oral agent given presence of RVR Restarted warfarin yesterday, after discussing with patient risks and benefits of continued anticoagulation therapy, she would rather protect herself from stroke and risk recurrent GI bleed. \ That will obviously need to be stopped if the hemoglobin drops further tomorrow morning. #Chronic hypertension, POA, active Blood pressure has been elevated 149/64, 132/62 Continue losartan from home, 50 mg by mouth daily #Chronic opioid use dependence, POA active Currently taking 60 mg oxycodone by mouth a day for chronic back pain Recommend outpatient pain management consultation Chronic low back pain, POA, active Continue home dosage of oxycodone Disposition: Anticipate discharge home in 1- 2 days if the hemoglobin stops dropping. If it does not stop dropping then we will reconsult GI, and asked the granddaughter to persuade her to go through with the Colyte prep, as she feels confident she would be able to do. GI Prophylaxis: Not indicated VTE Mechanical Devices: Intermittant Pneumatic CD Resuscitation Status: CPR: Attempt Resuscitation Isidra Gonzales MD Apr 25, 2017 09:18
[2017-04-25] MEDS: cefTRIAXone Inj 1,000 MG in Dextrose 5% Minibag Plus 50 ML IV SCH (12:42)
[2017-04-25] MEDS ORDERED: Albuterol 1.25 mg/3 mL Inhalation Solution NEB PRN (15:35)
--- NOTE | 2017-04-25 15:36 | NUR ---
wanting to d/c pleasant and cooperative pt. wanted to be d/c home today. It was explained to pt that close observation re H&H needs to continue. Pt states to understand. Tolerated IV abx well.
[2017-04-25] MEDS: Diltiazem CD 120 mg ER24 Capsule PO SCH (16:13)
[2017-04-26 00:47] VITALS: PULSE 98
[2017-04-26 01:32] VITALS: BP 130/79; PULSE 81; RESP 15; O2SAT 94
[2017-04-26] MEDS: Heparin 5,000 Unit/mL Inj SUBQ SCH (05:26)
[2017-04-26 05:53] VITALS: BP 151/83; PULSE 80; RESP 17; O2SAT 95
[2017-04-26 06:26] LABS: INR 1.35 ratio
[2017-04-26] MEDS: Sucralfate 100 mg/mL 10 mL Suspension PO SCH ×2 (07:16→10:32)
[2017-04-26] MEDS: Fluticasone 0.05% 15 Spray/2 Gm 16 Gm Nasal Spray NOSTRIL SCH (07:17)
[2017-04-26] MEDS: Senna-Docusate 8.6-50 mg Tablet PO SCH (07:18)
[2017-04-26] MEDS: MeTOProlol XL 25 mg ER24 Tablet PO SCH (07:30)
[2017-04-26] MEDS: Diltiazem CD 120 mg ER24 Capsule PO SCH (07:30)
[2017-04-26] MEDS: Pantoprazole 20 mg ER24 Tablet PO SCH (07:30)
[2017-04-26 07:46] VITALS: PULSE 74; RESP 20; O2SAT 94
[2017-04-26 08:17] LABS: Mean Corpuscular Hemoglobin 29.2 pg (27.0-35.0)
--- NOTE | 2017-04-26 08:38 | PCM.PHAPRO ---
Progress Date of Service: Apr 26, 2017 Warfarin dosing Date Apr 25-Apr 26 INR 1.29 1.25 1.35 INR change -0.04 0.1 Warf Dose 10MG 10MG 12.5MG David Tanner Apr 26, 2017 08:38
[2017-04-26 08:57] VITALS: PULSE 94
[2017-04-26] MEDS ORDERED: cefTRIAXone Inj 1,000 MG in Dextrose 5% Minibag Plus 50 ML IV SCH (09:40)
[2017-04-26 10:02] VITALS: BP 113/76; PULSE 82; RESP 18; O2SAT 97
[2017-04-26] MEDS ORDERED: PANT20TA2 PO (10:14)
[2017-04-26] MEDS ORDERED: FERR-83 PO (10:14)
[2017-04-26] MEDS ORDERED: ASCO250T7 PO (10:14)
--- NOTE | 2017-04-26 10:16 | NUR ---
Social Work: Discharge Data: Pt is on day 5 of hospitalization. EMR reviewed. D/C orders are in. Pt discussed in MD franc states no d/c needs. Pt declines any needs at this time. No further d/c planning needs at this time. DATA ARCHITECT will continue to follow if needs arise. Assessment: Pt who is independent at baseline. Plan: Pt will d/c home via POV today. No further d/c planning needs at this time. DATA ARCHITECT will continue to follow if needs arise. KASSI Angel
--- NOTE | 2017-04-26 10:17 | PCM.DIMED ---
Discharge Instructions Date of Service Apr 26, 2017 Dates of Hospitalization Apr 21, 2017 at 23:50 Discharge Diagnosis Discharge Diagnosis # Acute hemorrhagic anemia #Acute lower gastrointestinal hemorrhage #Urinary tract infection/positive urine culture - Patient demonstrated urine culture positive Klebsiella and Escherichia coli #Permanent atrial fibrillation #Chronic hypertension #Chronic opioid use dependence #Chronic low back pain Diet Discharge Diet: No restrictions Activity Discharge Activity: No restrictions Call your provider Call your provider for: Fever or Chills, Shortness of breath, Bleeding, Chest pain, Vomitting, Excessive diarrhea, Weakness (unilateral) Patient Instructions Follow-up Provider: Josh Nye ND Follow-up with PCP in: 1 week (You will need your Coumadin dose monitored/ checked this week at Dr. Nye's office. ) Isidra Gonzales MD Apr 26, 2017 10:17
[2017-04-26] MEDS ORDERED: CEFU500T61 PO (10:19)
[2017-04-26] MEDS ORDERED: DILT120C83 PO (10:45)
[2017-04-26] MEDS ORDERED: METO25TA99 PO (10:45)
--- NOTE | 2017-04-26 11:08 | PCM.PNMED ---
Subjective Date of Service Apr 26, 2017 Subjective Patient's nausea vomiting as this appeared. She denies seeing blood in the stools. Aware of the communication between the hospitalist and the granddaughter. Exam Vital Signs Vital Sign - Last Date Time Temp Pulse Resp B/P Pulse Ox O2 Delivery O2 Flow Rate FiO2 04/26/17 10:02 36.3 82 18 113/76 97 Room Air 04/24/17 04:03 2.00 Intake and Output 04/25/17 04/25/17 04/26/17 Cumulative From/Thru 15:00 23:00 07:00 04/21/17 21:06 - 04/26/17 05:53 Intake Total 86 ml 673 ml 700 ml 7543 ml Output Total 1200 ml 500 ml 8860 ml Balance 86 ml -527 ml 200 ml -1317 ml Intake Oral 673 ml 700 ml 3348 ml IV Total 86 ml 2173 ml Packed Cells 675 ml FFP 1347 ml Output Urine Total 1200 ml 500 ml 8860 ml # Voids 4 # Bowel Movements 0 6 Exam Patient is alert oriented comfortable Head and Neck no icterus Lungs clear overall but some areas of decreased breath sounds. No clear wheezing. Cardiac vascular tachycardia normal S1-S2. Abdomen soft nontender nondistended with normoactive bowel sounds Extremities no pitting edema ankles Skin shows no jaundice Lab and Diagnostics Result Diagram: 04/26/17 0525 04/25/17 0340 X-Rays, CTs and MRIs Abdominal CT pending 12-lead ECG EKG showed atrial fibrillation with rate of 99, right bundle branch block, comparison to EKG from roughly 3 months ago showed no change. Assessment & Plan 77-year-old woman with atrial fibrillation history of strokes and pulmonary embolism anticoagulated INR of 2.0 has had bright red blood per rectum for roughly 9 days found to be anemic hemoglobin 8.7. Hemoglobin went from 10.8-9.8 -10.0. However there is Minimal clinical evidence of GI bleeding. She now has bowel movements and she said she has not seen any blood. Aware she is guaiac positive. The guaiac positive could be be old blood that she had that has not cleared her colon. If she and her granddaughter wants the colonoscopy done, please notify us. Nausea vomiting has resolved. Tolerating diet. I will defer the anticoagulation to the primary care service as long as the risk and benefit of anticoagulation was discussed with the patient. Again I will defer this discussion and decision to the primary care hospitalist service can follow-up to see me in the GI clinic in 2 weeks.. Please reconsult if she wants a colonoscopy. Otherwise we will sign off. She can follow-up to see me in the GI clinic in 2 weeks after discharge. GI Prophylaxis: Not indicated VTE Mechanical Devices: Intermittant Pneumatic CD Resuscitation Status: CPR: Attempt Resuscitation Stanley Pathak MD Apr 26, 2017 11:08
--- NOTE | 2017-04-26 11:11 | NUR ---
Discharge Pt d/c at this time with granddaughter Elisa via wc by an aide Pt medicated for pain prior to leaving. Discharge teaching done with Elisa present, all questions answered. IV and tele d/c. All personal belongings left with pt. VSS.
--- NOTE | 2017-04-26 13:52 | PCM.DC.MED ---
Discharge Summary Date of Service Apr 26, 2017 Dates of Hospitalization Date of Hospital Admission Apr 21, 2017 at 23:50 Date of Discharge: Apr 26, 2017 Providers: Admitting Physician: Jean Marie Valadez MD Primary Care Physician: Josh Nye ND Attending Physician: Vivi Gonzales MD Diagnosis at Time of Discharge Diagnosis at Time of Discharge # Acute hemorrhagic anemia #Acute lower gastrointestinal hemorrhage #Urinary tract infection/positive urine culture - Patient demonstrated urine culture positive Klebsiella and Escherichia coli #Permanent atrial fibrillation #Chronic hypertension #Chronic opioid use dependence #Chronic low back pain Consultations [address] [address] Cardiology Consultation PATIENT NAME: ITALO DUFF : 1940 MR#: [id number] Consult Subjective Date of service Apr 22, 2017 Date of admit Apr 21, 2017 at 23:50 Provider Requesting Consult Requesting Provider: Dayton Carias DO Primary Care Physician Primary Care Physician: Josh Nye ND Chief Complaint Lower GI bleed. History of Present Illness This is a 77 y/o female with recently diagnosed Afib and prior to this a CVA which is felt to be 2/2 to afib. She was already on warfarin for history of PE back in 2007. Her INR was subtherapeutic when she present to [facility] urgent care clinic. She had an event monitor which showed afib. She is on Dilt CD 120 mg twice a day. Her afib is RVR at this time. She was admitted for most likely lower GI bleed. Her Hgb is 7.1. On admission it was around 8.5. She is experiencing N/V. She denies any symptoms in regards with her afib at this moment. She had a low risk pharmaceutical stress MIBI just a couple of months ago and her echocardiogram showed normal LVEF w/o any significant structural HD. I was asked by gastroenterology to clear the patient for you upper and lower endoscopy. She has recently established with Dr. Gan for her a-fib. Review of Systems General: Reports: Energy Fatigue Ears, Nose, Mouth & Throat: Denies: Any hearing loss Epistaxis or hoarseness Respiratory: Denies: Dyspnea supine Orthopnea or PND Significant dyspnea Cardiovascular: Reports: Atrial Fibrillation Denies: Chest Discomfort Presyncope Gastrointestinal: Reports: Ulcers or GI blood loss Genitourinary: Denies: Urinary symptoms Musculoskeletal: Denies: Significant joint or back problems Significant myalgias Neurological: Reports: Any history of stroke/TIA symptoms Psychiatric: Denies: Anxiety Depression Endocrine: Reports: Heat or cold intolerance Integumentary: Reports: Any change in hair or nails Hematologic/Immunologic: Reports: Recent history of anemia PMH Past Medical History Atrial fibrillation Pulmonary embolism CVA Hypertension History of diabetes, treated with weight loss. Past Surgical History Rectocele, cystocele repair Cholecystectomy hysterectomy Total foot repair secondary from trauma Hernia repair Scheduled Atorvastatin Calcium (Atorvastatin Calcium) 10 Mg Tablet 10 MG PO HS (Reported) Diltiazem ER (Cartia XT) 120 Mg Cap.er.24h 120 MG PO BID (Reported) Indapamide (Indapamide) 1.25 Mg Tablet 1.25 MG PO DAILY (Reported) Latanoprost (Latanoprost) 2.5 Ml Drops 1 DROP BOTH_EYES HS (Reported) Losartan Potassium (Losartan Potassium) 50 Mg Tablet 50 MG PO DAILY (Reported) Warfarin Sodium (Warfarin Sodium) 5 Mg Tablet 10 MG PO daily except thursday ( Reported) Warfarin Sodium (Warfarin Sodium) 2.5 Mg Tablet 12.5 MG PO thursday (Reported) Scheduled PRN Fluticasone Propionate (Fluticasone Propionate Nasal) 16 Gm [place].susp 1 SPRAY NASAL DAILY PRN PRN For Congestion (Reported) Oxycodone (Roxicodone) 5 Mg Tablet 10 MG PO Q4H PRN PRN For Pain (Reported) Discontinued Medications Atorvastatin (Lipitor) 20 Mg Tablet 40 MG PO HS (Reported) Diltiazem (Diltiazem) 120 Mg Tablet 120 MG PO DAILY (Reported) Current Inpatient Medications Current Medications Hydromorphone HCl 0.5 mg Q15MIN PRN IVPUSH Last administered on 04/21/17 23:41 ; Admin Dose 0.5 MG; Start 04/21/17 at 22:30; Stop 04/22/17 at 04:00; Status DC Al Hydrox/Mg Hydrox/Simethicone 30 ml Q6H PRN PO; Start 04/22/17 at 00:00 Ondansetron HCl 4 to 8 mg Q4H PRN IVPUSH Last administered on 04/22/17 01:58; Admin Dose 4 MG; Start 04/22/17 at 00:00 Senna 17.2 mg BID PRN PO; Start 04/22/17 at 00:00 Polyethylene Glycol 17 gm DAILY PRN PO; Start 04/22/17 at 00:00 Hydromorphone HCl 1 mg 1 mg Q4H PRN IVPUSH Last administered on 04/22/17 09:06 ; Admin Dose 1 MG; Start 04/22/17 at 00:05 Sodium Chloride 1,000 ml @ 100 mls/hr Q10H IV Last administered on 04/22/17 04 :05; Admin Dose 100 MLS/HR; Start 04/22/17 at 00:10 Fluticasone Propionate 1 spray DAILY NOSTRIL Last administered on 04/22/17 10: 12; Admin Dose 1 SPRAY; Start 04/22/17 at 08:30 Latanoprost 1 drop ASDIRECTED BOTH_EYES; Start 04/22/17 at 00:40 Losartan Potassium 50 mg DAILY PO Last administered on 04/22/17 10:12; Admin Dose 50 MG; Start 04/22/17 at 08:30 Diltiazem HCl 120 mg DAILY PO Last administered on 04/22/17 10:12; Admin Dose 120 MG; Start 04/22/17 at 08:30 Non-Formulary Medication 120 mg DAILY PO; Start 04/22/17 at 08:30; Stop at 08:30; Status DC Acetaminophen 650 mg 650 mg Q6H PRN PO Last administered on 04/22/17 04:44; Admin Dose 650 MG; Start 04/22/17 at 04:35 Sodium Chloride 250 ml @ 10 mls/hr Q24H PRN IV; Start 04/22/17 at 05:00 Allergies: Coded Allergies: Penicillins (Verified Allergy, Intermediate, Rash, 01/10/17) Family History Family History Father when patient was 4 years old after tree fell on him at work as a sociology faculty member Mother had bone cancer with metastases from complications of 56 years old Sister from breast cancer Other sister from coronary artery disease status post bypass Brother coronary artery disease status post coronary artery bypass Social History Hx Alcohol Use: Yes (occasional)Hx Substance Use: No Smoking Status: Former Smoker Living Arrangement: [facility] Exam Vital Signs Vital Sign - Last Date Time Temp Pulse Resp B/P Pulse Ox O2 Delivery O2 Flow Rate FiO2 04/22/17 11:31 36.8 110 14 130/78 04/22/17 05:45 95 Room Air Intake and Output 04/21/17 04/21/17 04/22/17 Cumulative From/Thru 15:00 23:00 07:00 04/21/17 21:06 - 04/22/17 05:23 Intake Total 1976 ml 1976 ml Output Total 700 ml 700 ml Balance 1276 ml 1276 ml Intake Oral 500 ml 500 ml IV Total 129 ml 129 ml FFP 1347 ml 1347 ml Output Urine Total 700 ml 700 ml # Bowel Movements 1 1 General: Pleasant Cooperative Mildly obese Skin: Warm & dry to touch Head: Normocephalic Eye: EOMS intact No arcus or xanthelasma Neck: No JVD No bruits Ears, Nose & Throat: Ears no gross abnormalities Nose no gross abnormalities Chest: Clear auscultation w/o rales/wheeze Cardiac: Irregularly irregular rhythm No S3 or S4 No murmurs Pulses: Pulses full/equal all extremities Abdomen: Soft, non-distended, non-tender Without masses or organomegally Rectal: Stool postive for blood Extremities: Warm w/o deformities,erythema noted Neurological: Alert & oriented No gross motor or sensory deficits Psychological: Affect & interaction appropriate Lab and Diagnostics Labs CBC Test 04/22/17 04:40 White Blood Count 4.4th/mm3 (3.8-10.1) Red Blood Count 2.42mil/mm3 (3.90-5.20) Hemoglobin 7.1g/dL (12.0-15.6) Hematocrit 22.3% (35.0-46.0) Mean Corpuscular Volume 92.1fL (81-100) Mean Corpuscular Hemoglobin 29.3pg (27.0-35.0) Mean Corpuscular Hemoglobin Concent 31.8% (32.0-37.0) Red Cell Distribution Width 15.9% (12.3-15.4) Platelet Count 222bil/L (150-400) Neutrophils (%) (Auto) 55.1% (40-74) Lymphocytes (%) (Auto) 34.7% (14-46) Monocytes (%) (Auto) 6.1% (4-12) Eosinophils (%) (Auto) 3.4% (0-5) Basophils (%) (Auto) 0.7% (0-3) CMP Test 04/21/17 21:10 04/22/17 04:40 Total Bilirubin 0.6mg/dL Aspartate Amino Transf (AST/SGOT) 20U/L Alanine Aminotransferase (ALT/SGPT) 17U/L Alkaline Phosphatase 72U/L Total Protein 6.7g/dL Albumin 3.6g/dL Sodium Level 142mEq/L Potassium Level 3.2mEq/L Chloride Level 103mEq/L Carbon Dioxide Level 27mmol/L Blood Urea Nitrogen 9mg/dL Creatinine 0.47mg/dL Estimat Glomerular Filtration Rate 184mL/min Glucose Level 91mg/dL Calcium Level 9.5mg/dL Result Diagram: 04/22/1743904/22/17439 Additional Diagnostics: Echo 07/27/2017 Showed normal LVEF, grade II diastolic dysfunction, no shunting on bubble study , no significant valvular HD. Echo 12/2016 Showed no significant changes since prior echo. evidence for severe biatrial chamber enlargement Assessment & Plan Problems: (1) Atrial fibrillation Qualifiers: Atrial fibrillation type: chronic Qualified Code: I48.2 - Chronic atrial fibrillation Plan: Currently with a little afib with RVR. We will try a little of IV metoprolol and see how she responds. If she responds nicely, then we start her on oral metoprolol XL 25 mg twice a day and titrate according to HR and BP. Nevertheless, she may go ahead with endoscopy even in the presence of mild RVR. She has had a prior stress test and echocardiogram which showed no evidence for significant myocardial ischemia or structural heart disease. I discussed about a NOAC instead of warfarin, give that they typically are more reliable with providing therapeutic anticoagulation than warfarin. She will think about it. She will need to resume warfarin or start a NOAC given her history of multiple CVAs noted on a brain MRI at [facility]. If she has recurrent GI bleeds then one may consider a Watchman device (occludes atrial appendage) which would eventually allow her to come off of anticoagulation down the road. Also, this depends if she needs to continue with warfarin or NOAC for distant history of PE which seems to me that she should have come off of anticoagulation a long time ago just for uncomplicated PE. Status: Chronic ICD Code: I48.91 (2) GI bleed Qualifiers: GI bleed type/associated pathology: unspecified gastrointestinal hemorrhage type Qualified Code: K92.2 - Gastrointestinal hemorrhage, unspecified Status: Acute ICD Code: K92.2 (3) Anticoagulated on Coumadin Status: Acute ICD Code: Z51.81 (4) Anemia Status: Acute ICD Code: D64.9 Pain Evaluation: Adequate Pain Control VTE Prophylaxis Indicated: Contraindicated Resuscitation Status: CPR: Attempt Resuscitation Time spent 60 minutes Krish Redd MD Apr 22, 2017 12:31 <Electronically signed by Krish Redd MD [address] [address] CONSULTATION REPORT PATIENT: ITALO DUFF : 1940 MR#: [id number] ADMIT: 04/21/2017 JOB ID: [id number] DATE OF SERVICE: 04/22/2017 It was a pleasure seeing the patient at [facility] for evaluation of rectal bleeding. This is a 77-year-old lady who has history of a pulmonary embolism, CVA, AFib on Coumadin, who came to the emergency department because of one week of hematochezia. Essentially what happened was she was in her usual state of health last week and she typically is constipated. However, sometime last week, she had a bowel movement and then she only saw blood coming out. The episodes of blood were multiple throughout the day and this continued for about three days and it slowly started tapering off. She is also on Coumadin. She contacted her naturopathic physician who recommended she should take Imodium due to the diarrhea. Then, in the past few days, she started developing nausea, vomiting but no blood in the vomitus. She could not keep anything down and she was not feeling well. Because of the nausea, vomiting and she still had persistent bleeding intermittently which is significantly less than before, she came to the emergency department. In the emergency department, she was noted to be a little tachycardic with hemoglobin 8.[address] a CT scan which showed a prominent stool consistent with constipation. Cholecystectomy with mild prominence of common bile duct probably due to cholecystectomy. Her hemoglobin in the ED went from 8.7 to 7.1. INR was 2 and it is 1.31 this morning. PAST MEDICAL HISTORY: 1. AFib. 2. Pulmonary embolism. 3. CVA. 4. Hypertension. 5. Diabetes. PAST SURGICAL HISTORY: 1. Rectocele/cystocele repair. 2. Cholecystectomy. 3. Hysterectomy. 4. Foot surgery repair. 5. Hernia repair. FAMILY HISTORY: Father is a sociology faculty member. Breast cancer. Occasionally uses alcohol. No tobacco or marijuana use. No drug use. CURRENT MEDICATION: Include diltiazem, losartan, Flonase, Dilaudid, Tylenol, Zofran, potassium, Zelex, polyethylene glycol, senna and Maalox. PHYSICAL EXAMINATION: The patient was alert, oriented, does appear comfortable. Temperature 36.8, pulse 110, blood pressure 130/78. Pulse 14. Head and neck: No icterus. No lymphadenopathy. Lungs clear. Cardiovascular: Irregular with normal S1, S2. Abdomen: Soft, nontender, nondistended with normoactive bowel sounds. Extremities: No pitting edema of the ankles. Skin shows no jaundice. IMPRESSION: This is a lady with nausea, vomiting for the past few days and had bloody diarrhea for past several days, but it has slowed down quite a bit. She was still having blood coming out of her rectum according to the patient as of yesterday. They tried prepping her for colonoscopy but she vomited the GoLYTELY prep and she does not want to drink the GoLYTELY. Her last colonoscopy was five years ago and she does not want to proceed with colonoscopy. Because of the nausea, vomiting, we could do an upper endoscopy. But most likely this was a diverticular bleed. I would recommend, because of underlying cardiac issue, her hemoglobin should be around 9. For now I would also recommend PPI. Stanley Pathak MD 04/22/17 1222 <Electronically signed by Stanley Pathak MD Procedures XRay, CTs & MRIs Abdominal CT pending ECG 12 Lead EKG showed atrial fibrillation with rate of 99, right bundle branch block, comparison to EKG from roughly 3 months ago showed no change. Other Diagnostics [address] [address] Endo EGD Procedure Rpt PATIENT NAME: ITALO DUFF : 1940 MR#: [id number] EGD Date of Service: Apr 22, 2017 Physician Stanley Pathak MD Pre Procedure Diagnosis: Nausea vomiting Post Procedure Dx & Findings: Diffuse erosive gastropathy nonobstructing Schatzki's ring with an erosion Procedure Esophagogastroduodenoscopy PROCEDURE IN DETAIL: After proper sedation, Olympus video endoscope was inserted into patient's mouth and esophagus was successfully intubated. Scope introduced esophagus. Esophagus showed normal shiny whitish mucosa consistent with squamous cell component. Z line was at 37 cm from the incisors. 3 cm hiatal hernia noted. There was a nonobstructing Schatzki's ring with small erosion. Biopsies obtained. Scope further advanced to the stomach. The entire stomach had bilious material with atrophy with almost complete disappearance of rugae folds swelling and redness with element of old blood. Biopsies are obtained from the proximal stomach to the distal stomach. Cardia fundus body antrum pylorus were all visualized. Retroflexion was done. Stomach was easily inflated and deflatable using air. Scope further events to the distal duodenum. Duodenum revealed normal villous structures with normal appearing folds without any mass ulcer erosion. Impression Diffuse erosive gastropathy nonobstructing Schatzki's ring with an erosion Recommendation IV PPIs Carafate Liquid diet Colonoscopy if she agrees to drinking the prep. This morning she refused to drink the prep due to the nausea vomiting and did not want to proceed with colonoscopy. Presedation Assessment Risks and Benefits Informed consent was obtained from the patient after all risks and benefits including but not limited to drug reaction, infection, pain, bleeding, perforation, as well as alternatives were discussed. Patient monitoring Continuous pulse oximetry, cardiac monitoring, blood pressure monitoring, IV access, and oxygen at 2L per nasal cannula. Complications There were no periprocedural complications identified. Post Procedure Plan Post Procedure Recommendations 1. Restrict activities today. 2. Resume normal activities in the morning. 3. Resume medications. 4. GERD behavioral modification: - Avoid fatty, acidic, spicy, large meals - Do not lie down after meals - Do not eat or drink anything for at least 2 1/2 hours before going to bed at night - Discontinue tobacco and alcohol - Decrease or avoid caffeine - Avoid chocolate and mints - Decrease weight - Avoid aspirin and non steroidal anti-inflammatory agents (NSAID) such as Aleve, Advil, Mobic, Naproxen, Ibuprofen, etc 5. Add proton pump inhibitor. Take 30 minutes before 1st meal of the day. 6. Patient informed of normal post procedure side effects as bloating, drowsiness, blood streaking in the stool 7. If gastric biopsy reveal H.pylori, continue with appropriate treatment 8. If small bowel biopsy reveals celiac, continue with appropriate treatment 9. Please don't hesitate to call me with any questions Stanley Pathak MD Apr 22, 2017 18:08 <Electronically signed by Stanley Pathak MD> 04/22/17 3085 Brief History This is a 77 y/o female with recently diagnosed Afib and prior to this a CVA which is felt to be 2/2 to afib. She was already on warfarin for history of PE back in 2007. Her INR was subtherapeutic when she present to [facility] urgent care clinic. She had an event monitor which showed afib. She is on Dilt CD 120 mg twice a day. Her afib is RVR at this time. She was admitted for most likely lower GI bleed. Her Hgb is 7.1. On admission it was around 8.5. She is experiencing N/V. She denies any symptoms in regards with her afib at this moment. She had a low risk pharmaceutical stress MIBI just a couple of months ago and her echocardiogram showed normal LVEF w/o any significant structural HD. I was asked by gastroenterology to clear the patient for you upper and lower endoscopy. She has recently established with Dr. Gan for her a-fib. Hospital Course 77-year-old woman with atrial fibrillation history of strokes and pulmonary embolism anticoagulated INR of 2.0 has had bright red blood per rectum for roughly 9 days found to be anemic hemoglobin 8.7. # Acute hemorrhagic anemia, POA, active Treatment on the first day INR 2.01, hemoglobin 8.7 with concurrent hematochezia. 4 units fresh frozen plasma now Type and cross 2 units Trans-fusion threshold 8.0 or if symptomatic H&H is upper trending hemoglobin 10.0 today. I discussed with her granddaughter that she seems to be tolerating the resumption of Coumadin without signs of recurrent GI bleeding. Continue PPI as per GI recommendations Discharge in stable condition to home today. She lives at an assisted living [facility]. #Urinary tract infection/positive urine culture - Patient demonstrated urine culture positive Klebsiella and Escherichia coli sensitive to ceftriaxone. She will be going home on Ceftin given her allergies and the various sensitivities reviewed. #Permanent atrial fibrillation, rate controlled, POA, active Continue antiarrhythmics: Diltiazem 120 mg by mouth daily, and metoprolol. Restarted warfarin, after discussing with patient risks and benefits of continued anticoagulation therapy, she would rather protect herself from stroke and risk recurrent GI bleed. \ That will obviously need to be stopped if the hemoglobin drops again. Dr. Redd indicated there was an alternative procedure she could be considered for involving the atrial appendage, if the bleeding recurs. #Chronic hypertension, POA, active Continue losartan from home, 50 mg by mouth daily, along with metoprolol and diltiazem. #Chronic opioid use dependence, POA active Currently taking 60 mg oxycodone by mouth a day for chronic back pain Recommend outpatient pain management consultation Exam Vital Signs (Last) Date Time Temp Pulse Resp B/P Pulse Ox O2 Delivery O2 Flow Rate FiO2 04/26/17 10:02 36.3 82 18 113/76 97 Room Air 04/24/17 04:03 2.00 Exam On exam today she is up and walking in the hallway, and is excited to hear that her hemoglobin has risen to 10.0. Heart is irregularly irregular without murmur Lungs clear to auscultation bilaterally There is no swelling in the neck There is no ankle edema. Motor function is intact she is using her walker expertly. Test 04/21/17 21:10 04/22/17 04:45 04/24/17 04:40 04/25/17 03:40 Total Bilirubin 0.6mg/dL (0.0-1.2) Aspartate Amino Transf (AST/SGOT) 20U/L (0-50) Alanine Aminotransferase (ALT/SGPT) 17U/L (0-32) Alkaline Phosphatase 72U/L (25-165) Total Protein 6.7g/dL (6.4-8.4) Albumin 3.6g/dL (3.4-5.0) Urine Color Straw (YELLOW) Urine Appearance Hazy (CLEAR,HAZY) Urine pH 8.0 (5.0-8.0) Urine Specific [place] 1.010 (1.003-1.035) Urine Protein Negativemg/dL (NEG,TRACE) Urine Glucose (UA) Negativemg/dL (NEGATIVE) Urine Ketones Tracemg/dL (NEGATIVE) Urine Occult Blood Trace (NEGATIVE) Urine Nitrite Positive (NEGATIVE) Urine Bilirubin Negative (NEGATIVE) Urine Urobilinogen Normalmg/dL (NORMAL) Urine Leukocyte Esterase Negative (NEGATIVE) Urine RBC 0-2/hpf (0-2) Urine WBC 0-5/hpf (0-5) Urine Epithelial Cells Few/hpf (NONE-MOD) Urine Crystals None seen (NONE SEEN) Urine Bacteria Many/hpf (NONE-FEW) Urine Hyaline Casts None/lpf (NONE) Urine Granular Casts None seen (NONE SEEN) Urine Waxy Casts None seen (NONE SEEN) Urine Red Blood Cell Casts None seen (NONE SEEN) Urine White Blood Cell Casts None seen (NONE SEEN) Urine Mucus None seen (None Seen) Urine Trichomonas None seen (NONE SEEN) Urine Yeast None (NONE SEEN) Urinalysis Comment None Urine Culture Reflexed Indicated Magnesium Level 1.7mg/dL (1.6-2.6) Neutrophils (%) (Auto) 59.8% (40-74) Lymphocytes (%) (Auto) 26.5% (14-46) Monocytes (%) (Auto) 9.4% (4-12) Eosinophils (%) (Auto) 3.6% (0-5) Basophils (%) (Auto) 0.5% (0-3) Sodium Level 140mEq/L (134-144) Potassium Level 4.2mEq/L (3.5-5.2) Chloride Level 102mEq/L (97-108) Carbon Dioxide Level 27mmol/L (18-29) Blood Urea Nitrogen 13mg/dL (8-27) Creatinine 0.38mg/dL (0.57-1.00) Estimat Glomerular Filtration Rate 235mL/min (>59) Glucose Level 110mg/dL (60-99) Calcium Level 8.8mg/dL (8.5-10.1) Test 04/26/17 05:25 White Blood Count 5.6th/mm3 (3.8-10.1) Red Blood Count 3.43mil/mm3 (3.90-5.20) Hemoglobin 10.0g/dL (12.0-15.6) Hematocrit 31.9% (35.0-46.0) Mean Corpuscular Volume 93.0fL (81-100) Mean Corpuscular Hemoglobin 29.2pg (27.0-35.0) Mean Corpuscular Hemoglobin Concent 31.3% (32.0-37.0) Red Cell Distribution Width 15.2% (12.3-15.4) Platelet Count 257bil/L (150-400) Prothrombin Time 14.5sec (8.1-12.5) Prothromb Time International Ratio 1.35ratio Discharge Medications Discharge Medications Ascorbic Acid (Vitamin C) 250 Mg Tab.chew 250 MG PO DAILY Prescribed by: NHAN GONZALES MD Atorvastatin Calcium (Atorvastatin Calcium) 10 Mg Tablet 10 MG PO HS (Reported) Cefuroxime Axetil (Cefuroxime) 500 Mg Tablet 500 MG PO BID Prescribed by: NHAN GONZALES MD Diltiazem ER (Cartia XT) 120 Mg Cap.er.24h 120 MG PO BID (Reported) Diltiazem ER (Cardizem CD) 120 Mg Cap.er.24h 120 MG PO DAILY Prescribed by: NHAN GONZALES MD Ferrous Sulfate (Ferrous Sulfate) 325 Mg Tablet 325 MG PO DAILY Prescribed by: NHAN GONZALES MD Indapamide (Indapamide) 1.25 Mg Tablet 1.25 MG PO DAILY (Reported) Latanoprost (Latanoprost) 2.5 Ml Drops 1 DROP BOTH_EYES HS (Reported) Losartan Potassium (Losartan Potassium) 50 Mg Tablet 50 MG PO DAILY (Reported) Metoprolol Succinate ER (Metoprolol Succinate ER) 25 Mg Tab.er.24h 50 MG PO BID Prescribed by: NHAN GONZALES MD Pantoprazole DR (Pantoprazole DR) 20 Mg Tablet.dr 20 MG PO BID Prescribed by: NHAN GONZALES MD Warfarin Sodium (Warfarin Sodium) 5 Mg Tablet 10 MG PO daily except thursday ( Reported) Warfarin Sodium (Warfarin Sodium) 2.5 Mg Tablet 12.5 MG PO thursday (Reported) As needed Fluticasone Propionate (Fluticasone Propionate Nasal) 16 Gm [place].susp 1 SPRAY NASAL DAILY PRN PRN For Congestion (Reported) Oxycodone (Roxicodone) 5 Mg Tablet 10 MG PO Q4H PRN PRN For Pain (Reported) Followup Plan Discharge Diet: No restrictions Discharge Activity: No restrictions Follow-up Provider: Josh Nye ND Follow-up with PCP in: 1 week (You will need your Coumadin dose monitored/ checked this week at Dr. Nye's office. ) Time spent 50 minutes Isidra Gonzales MD Apr 26, 2017 10:46
[2017-04-26] MEDS ORDERED: Warfarin 10 MG, Warfarin 2.5 MG PO ONE ×2 (17:00)
== END 2017-04-26 11:10 | disposition home or self-care (01) | DRG 378 ==
LOC: SED 21:05 → MPC 23:50
PROVIDERS: ADMIT Hospitalist; ATTEND Hospitalist
PROC: 30233N1 Transfusion of Nonautologous Red Blood Cells into Peripheral Vein, Percutaneous Approach (ICD-10-PCS; 2017-04-22)
PROC: 0DB58ZX Excision of Esophagus, Via Natural or Artificial Opening Endoscopic, Diagnostic (ICD-10-PCS; 2017-04-22)
PROC: 0DB68ZX Excision of Stomach, Via Natural or Artificial Opening Endoscopic, Diagnostic (ICD-10-PCS; 2017-04-22)
PROC: 30233L1 Transfusion of Nonautologous Fresh Plasma into Peripheral Vein, Percutaneous Approach (ICD-10-PCS; principal; 2017-04-22 16:15)
DX: K92.2 Gastrointestinal hemorrhage, unspecified (principal); D62 Acute posthemorrhagic anemia; F11.288 Opioid dependence with other opioid-induced disorder; N39.0 Urinary tract infection, site not specified; K22.2 Esophageal obstruction; K31.9 Disease of stomach and duodenum, unspecified; Z79.01 Long term (current) use of anticoagulants; T40.2X5D Adverse effect of other opioids, subsequent encounter; K92.1 Melena; K59.00 Constipation, unspecified; B96.1 Klebsiella pneumoniae [K. pneumoniae] as the cause of diseases classified elsewhere; B96.20 Unspecified Escherichia coli [E. coli] as the cause of diseases classified elsewhere; Z86.73 Personal history of transient ischemic attack (TIA), and cerebral infarction without residual deficits; Z86.711 Personal history of pulmonary embolism; Z86.010 Personal history of colon polyps; I48.2 Chronic atrial fibrillation; I10 Essential (primary) hypertension

== ENCOUNTER 2017-06-11 13:05 | Day surgery (SDC) | payer MEDICARE ==
[~2017-06-11] VITALS: Ht 154.9 cm; Wt 69.8 kg
--- NOTE | 2017-06-11 07:47 | PCM.HPANE ---
Patient Data Surgeon Admitting Provider: Attending Provider:Stanley Pathak MD Primary Care Physician:Josh Nye ND Other Provider:Carrie Jenkins Anesthesia Reason for Visit Positive Occult Stool Blood Test Ht/WT & BMI Body Mass Index Allergies Coded Allergies: Penicillins (Verified Allergy, Intermediate, Rash, 01/10/17) Past Anesthesia History Anesthesia History: Denies:: Abnormal Airway, Anesthesia Reactions, Difficult Intubation Diabetes History Hx Diabetes?: No MRSA MRSA: No Medications Reported Medications Fluticasone Propionate (Flonase Allergy Relief)50 Mcg/Actuation [place].susp9.9 Ml NS DAILY 06/11/17 Albuterol/Ipratropium (Combivent Respimat Inhal [place])120 Spr/4 Gm Inhaler1 Puff IH QID #1 INH Ref 0 06/11/17 oxyCODONE 10 Mg Pzcera82 Mg PO Q6H PRN For Pain Ref 0 06/11/17 Ascorbic Acid (Vitamin C)100 Mg Tablet1 Tab PO DAILY 06/09/[address] (Protonix)40 Mg Ebrjbc64 Mg PO BID Ref 0 06/09/17 Loratadine 10 Mg Vbxgrwm94 Mg PO DAILY 06/09/17 Ferrous Sulfate (Iron)325 Mg Nbjsfv844 Mg PO 06/09/17 Furosemide 20 Mg Tab20 Mg PO DAILY 30 Days Ref 0 06/09/17 Diltiazem ER 120 Mg Cap.er.85e658 Mg PO BID Ref 0 06/09/17 Warfarin Sodium (Coumadin)10 Mg Lycnme36 Mg PO DAILY 30 Days Ref 0 06/09/17 Atorvastatin (Lipitor)10 Mg Tab10 Mg PO DAILY Ref 0 06/09/17 Discontinued Reported Medications Metoprolol Succinate ER 50 Mg Tab.er.24h50 Mg PO BID Ref 0 06/09/17 Atorvastatin Calcium 10 Mg Rbmkxx90 Mg PO HS #90 04/22/17 Latanoprost 2.5 Ml Drops1 Drop BOTH_EYES HS #25 04/21/17 Diltiazem ER (Cartia XT)120 Mg Cap.er.88j009 Mg PO BID #180 04/21/17 Fluticasone Propionate (Fluticasone Propionate Nasal)16 Gm [place].susp1 [place] NASAL DAILY PRN For Congestion #16 04/21/17 Indapamide 1.25 Mg Tablet1.25 Mg PO DAILY #30 TABLET 01/10/17 Oxycodone (Roxicodone)5 Mg Zdnvur51 Mg PO Q4H PRN For Pain Ref 0 01/10/17 Losartan Potassium 50 Mg Ulgxhw06 Mg PO DAILY 01/10/17 Warfarin Sodium 2.5 Mg Njiuem77.5 Mg PO thursday 30 Days Ref 0 01/10/17 Warfarin Sodium 5 Mg Nwdmfy15 Mg PO daily except thursday Days Ref 0 01/10/17 Discontinued Scripts Metoprolol Succinate ER 25 Mg Tab.er.24h50 Mg PO BID #60 TABLET Prov:Isidra Gonzales MD 04/26/17 Diltiazem ER (Cardizem CD)120 Mg Cap.er.62k200 Mg PO DAILY #30 TABLET Prov:Isidra Gonzales MD 04/26/17 Cefuroxime Axetil (Cefuroxime)500 Mg Oyrpdg763 Mg PO BID #10 TABLET Prov:Isidra Gonzales MD 04/26/17 Ascorbic Acid (Vitamin C)250 Mg Tab.fjrr897 Mg PO DAILY #30 TABLET Ref 0 Prov:Isidra Gonzales MD 04/26/17 Ferrous Sulfate 325 Mg Dokhgi917 Mg PO DAILY #30 TABLET Ref 0 Prov:Isidra Gonzales MD 04/26/[address] 20 Mg Tablet.dr20 Mg PO BID #60 TABLET Prov:Isidra Gonzales MD 04/26/17 History History of ENT Problems?: No HEENT History: Denies:: Abnormal Airway Cataracts Difficult Intubation Dysphagia Hearing Problem Sinus Problem TMJ Denture Type: Full- Upper Full- Lower Teeth Condition: Missing Teeth Hx of Heart Problems?: Yes Cardiovascular History: Positive for:: Congestive Heart Failure Hypertension Hx of Respiratory Problem?: Yes Respiratory History: Positive for:: Asthma Denies:: Tuberculosis Hx Neurologic Problems?: Yes Neurological History: Positive for:: CVA Hx of GI Problems?: Yes Hx of Problems?: No Hx Musculoskeletal Problems?: Yes Musculoskeletal History: Positive for:: Back Injury Hx of Psycho/Social Problems?: No Hx Surgeries?: Yes (connie, hyst, cystocele, rectocele, foot surg, hernia) Hx Any Other Health Problems?: Yes History Blood Transfusions: Denies:: Blood Transfuse Reaction Blood Transfusions Hx Diabetes: No Hx Alcohol Use: Yes (occasional)Hx Substance Use: No Smoking Status: Former Smoker Stop/Bang Risk Assessment Category Category 1A: Patient has history of documented sleep apnea, and HAS NOT received any narcotic, sedative or anesthesia administration during this stay. Category 1B: Patient has history of documented sleep apnea, and HAS received any narcotic , sedative or anesthesia administration during this stay Category 2: Patient has SUSPECTED Obstructive Sleep Apnea, and HAS received any narcotic , sedative or anesthesia administration during this stay. Category 3: Patient has SUSPECTED Obstructive Sleep Apnea and HAS NOT received narcotic, sedative or anesthesia administration during this stay. Category 4: Outpatient in Procedural Areas with known sleep apnea or who screen positive for High Risk via the STOP/BANG questionnaire. Exam Exam General Appearance: Alert, Oriented X3, Cooperative, No Acute Distress HEENT/AIRWAY: MP 2, Neck Movement (from), Mouth Opening (wnl) Lungs: Clear to Auscultation Heart: Exam Unremarkable Plan Impression Patient chart reviewed, patient interviewed and anesthestic plan with risks, benefits, and alternatives discussed, and informed consent obtained. ASA Physical Status: ASA3 Severe Disease Anesthetic Plan: MAC Bene/Risks/Altern/Consents: Yes HP Complete Prior to Induction: Yes Brady Rodriguez MD Jun 11, 2017 07:47
[~2017-06-11 13:05] MED LIST changes: +ASCO100T11 PO; -ATOR20TA PO; +ATRV10T PO; +DILT120C10 PO; -DILT120T3 PO; +FERR325T40 PO; +FUR20 PO; -INDA1.252 PO; +LORA10CA9 PO; -LOSA50TA37 PO; +Lactated Ringer's 1,000 ML IV ONE; +METO-272 PO; -OXYC-474 PO; +PANT40TA2 PO; +WARF10TA PO; -WARF2.5T82 PO; -WARF5TAB7 PO
[2017-06-11] MEDS ORDERED: Propofol 10,000 mCg/mL 20 mL Inj ONE (13:06)
[2017-06-11] MEDS ORDERED: FLUT9.9S NS (13:27)
[2017-06-11] MEDS ORDERED: IPRA4AER IH (13:27)
[2017-06-11] MEDS ORDERED: OXYC10TA8 PO (13:27)
[2017-06-11 13:54] VITALS: BP 156/95; PULSE 100; RESP 16; O2SAT 98
[2017-06-11] MEDS ORDERED: Ondansetron 2 mg/mL 2 mL Inj IVPUSH PRN (14:40)
[2017-06-11] MEDS ORDERED: Lactated Ringer's 1,000 ML IV SCH (14:40)
[2017-06-11] MEDS ORDERED: MetoCLOpramide 5 mg/mL 2 mL Inj IVPUSH PRN (14:40)
[2017-06-11 15:24] VITALS: BP 133/80; PULSE 97; O2SAT 99
--- NOTE | 2017-06-11 15:27 | PCM.ENDCOL ---
Colonoscopy Date of Service: Jun 11, 2017 Physician Stanley Pathak MD Pre Procedure Diagnosis: Blood in the stools Post Procedure Dx & Findings: Polyp hemorrhoids diverticulosis Procedure Colonoscopy PROCEDURE IN DETAIL: Anesthesiology sedation Prep adequate Withdrawal time 27 minutes After unremarkable rectal examination the Olympus video colonoscope was inserted patient's anal canal and was advanced to cecum. Landmarks were identified including the ileocecal valve and appendiceal orifice. Scope further advanced to the terminal ileum which showed normal villous structures without any ulcer mass or erosions. Advanced 8 cm. Scope was withdrawn systematically. Visualized colonic mucosa showed healthy shiny mucosa with normal healthy-appearing vasculature. In the ascending colon there were 2 polyps. One was 1 mm in size. This was resected completely using cold forceps. The other one was about 5 mm in size which was resected completely using cold snare. In the transverse colon, there was another 3 mm polyp which was removed completely using cold snare. In the sigmoid colon there was a 3 mm polyp which was removed completely using cold snare. In the sigmoid colon there was a 2 cm polyp. This was lifted using 5 mL of normal saline. This was removed completely using hot snare. 2 resolution clips deployed. In the sigmoid colon there are a few small diverticuli. In the rectum retroflexion was done which showed hemorrhoids. Anal canal was inspected carefully on the way out and hemorrhoids noted. Impression Polyps 5. Largest one 2 cm. All resected completely. Few small diverticula Hemorrhoids Recommendation Repeat colonoscopy 3 years Diverticula diet Presedation Assessment Risks and Benefits Informed consent was obtained from the patient after all risks and benefits including but not limited to drug reaction, infection, pain, bleeding, perforation, as well as alternatives were discussed. Patient monitoring Continuous pulse oximetry, cardiac monitoring, blood pressure monitoring, IV access, and oxygen at 2L per nasal cannula. Complications There were no periprocedural complications identified. Post Procedure Plan Post Procedure Recommendations 1. Restrict activities today. 2. Resume normal activities in the morning. 3. Resume medications. 4. Patient informed of normal post procedure side effects as bloating, drowsiness, blood streaking in the stool. 5. average risk CRCS. If colon polyps come back as: -Hyperplastic- can repeat colonoscopy in 10 years -Tubular adenoma- repeat colonoscopy in 5 years -Tubulovillous/villous adenoma- repeat colonoscopy in 3 years -If any dysplasia- return to clinic as soon as possible 6. Please don't hesitate to call me with any questions. Stanley Pathak MD Jun 11, 2017 15:27
--- NOTE | 2017-06-11 15:31 | PCM.ANEP1 ---
Post Anesthesia PACU Phase 1 Assessment Vital Signs Vital Signs Date Time Temp Pulse Resp B/P Pulse Ox O2 Delivery O2 Flow Rate FiO2 06/11/17 13:54 36.3 100 16 156/95 98 Room Air Anesthetic Administered: MAC Level of Alertness: Awake, talking MIRELES's with Equal Strength: Yes Pain: No Nausea or Vomiting: No CV Function & Hydration Stable: Yes Airway Device: Oxygen Delivery: Room Air Lungs: Normal Air Movement PACU Phase 2 Assessment Complications: No Follow up Care: No Patient Instructions Provided: N/A Brady Rodriguez MD Jun 11, 2017 15:31
[2017-06-11 15:42] VITALS: BP 133/73; PULSE 93; RESP 16; O2SAT 100
[2017-06-11 15:51] VITALS: BP 134/76; PULSE 107; RESP 16; O2SAT 98
[2017-06-11 16:01] VITALS: BP 131/79; PULSE 99; RESP 14; O2SAT 97
--- NOTE | 2017-06-16 11:47 | PATH ---
SURGICAL PATHOLOGY Attending Physician:Stanley Pathak M.D. CASE STATUS: Signed Out PATIENT NAME: ITALO DUFF PID: [id number] : 1940 DATE COLLECTED:06/11/2017 00:00 SPECIMEN: 1: Colon, Polyp 2: Colon, Polyp CLINICAL HISTORY: 1). ASCENDING POLYPS X2 2). SIGMOID POLYP X2 FINAL DIAGNOSIS: 1. Ascending Colon Polyps x2, Biopsies: Fragments of tubular adenoma. Fragments of colonic mucosa with no diagnostic abnormality. 2. Sigmoid Colon Polyp x2, Biopsies: Tubular adenoma x2. ICD10: D12.6 GROSS DESCRIPTION: The specimens are received in formalin, labeled with the patient's name, and sublabeled as the following: (1) ascend; (2) sigmoid. (1) The specimen consists of multiple fragments of shine-white glistening translucent tissue (10.5 x 0.3 x <0.1 cm in aggregate). Section code: (1A) tissue. Specimen entirely submitted. (2) The specimen consists of multiple fragments of olivares glistening rubbery semitranslucent tissue (1.0 x 0.7 x 0.4 cm in aggregate). Section code: (2A) tissue. Specimen entirely submitted. 06/13/17 ICD-9 CODES: CPT CODES: 1: 81688 2: 82569 Electronically Signed Out Gary Healy MD, Ph.D. [facility] Pathology [facility], [place] [address] Technical component performed at [facility], [address] [place] [address] Ave[address], [place], [address]
== END 2017-06-11 23:59 | disposition home or self-care (01) ==
LOC: END 13:05
PROVIDERS: ATTEND Internal Medicine
DX: D12.2 Benign neoplasm of ascending colon (principal); D12.5 Benign neoplasm of sigmoid colon; K57.30 Diverticulosis of large intestine without perforation or abscess without bleeding; K64.8 Other hemorrhoids; R19.5 Other fecal abnormalities; I50.9 Heart failure, unspecified; I10 Essential (primary) hypertension; J45.909 Unspecified asthma, uncomplicated; Z79.01 Long term (current) use of anticoagulants; Z79.899 Other long term (current) drug therapy; Z87.891 Personal history of nicotine dependence; Z86.73 Personal history of transient ischemic attack (TIA), and cerebral infarction without residual deficits
CPT/HCPCS: 45380; 45385; J2704; J7120

== ENCOUNTER 2017-07-28 13:57 | Emergency (ER) | payer MEDICARE ==
[~2017-07-28] VITALS: Ht 157.5 cm; Wt 70.9 kg
[~2017-07-28 13:57] MED LIST changes: +FLUT9.9S NASAL; +IPRA4AER IH; -Lactated Ringer's 1,000 ML IV ONE; -METO-272 PO; +OXYC10TA8 PO
[2017-07-28 14:07] VITALS: BP 119/79; PULSE 77; RESP 15; O2SAT 98
[2017-07-28] MEDS ORDERED: PANT20TA2 PO (14:21)
[2017-07-28] MEDS ORDERED: WARF5TAB7 PO (14:21)
[2017-07-28] MEDS ORDERED: LOSA50TA37 PO (14:21)
[2017-07-28] MEDS ORDERED: LATA2.5D6 BOTH_EYES (14:21)
[2017-07-28 14:39] LABS: BASOPHILS % (AUTO) 0.6 % (0-3); EOSINOPHILS % (AUTO) 3.1 % (0-5); MONOCYTES % (AUTO) 6.5 % (4-12); Mean Corpuscular Hemoglobin 28.4 pg (27.0-35.0); Mean Corpuscular Volume 88.1 fL (81-100); NEUTROPHILS % (AUTO) 69.7 % (40-74); Platelet Count 223 bil/L (150-400)
[2017-07-28 14:56] LABS: Magnesium 1.6 mg/dL (1.6-2.6)
--- NOTE | 2017-07-28 16:01 | ED.REPORT ---
HPI-Abd Pain F 40 and Over Date of Service Jul 28, 2017 ED Provider: History of Present Illness: abd pain for a week, off and on for a long time, worse since Thursday. No vomiting, foam comes up after eating. Saw GI today and sent here. ususally takes oxycodone 10 mg 4times a day. Takes chronic pain meds for her back.. Josh nye is primary care. 08/11. 120 pils for 30 days. Has not eaten since yesterday. Nursing Notes Stated Complaint: PAIN IN SIDE Chief Complaint: Female Abdominal Pain Nursing Notes Reviewed: Yes Allergies: Coded Allergies: Penicillins (Verified Allergy, Intermediate, Rash, 07/28/17) Scheduled Atorvastatin (Lipitor) 10 Mg Tab 10 MG PO DAILY Diltiazem ER (Diltiazem ER) 120 Mg Cap.er.12h 120 MG PO BID Furosemide (Furosemide) 20 Mg Tab 20 MG PO DAILY Latanoprost (Latanoprost) 2.5 Ml Drops 1 GTT BOTH_EYES HS Losartan Potassium (Losartan Potassium) 50 Mg Tablet 50 MG PO DAILY Pantoprazole DR (Pantoprazole DR) 20 Mg Tablet.dr 20 MG PO DAILY Warfarin Sodium (Warfarin Sodium) 5 Mg Tablet 5 MG PO DAILY Scheduled PRN Albuterol/Ipratropium (Combivent Respimat Inhal [place]) 120 Spr/4 Gm Inhaler 2 PUFF IH QID PRN PRN For Shortness of Breath Fluticasone Propionate (Flonase Allergy Relief) 50 Mcg/Actuation [place].susp 2 SPRAYS NASAL DAILY PRN PRN stuffy nose oxyCODONE (oxyCODONE) 10 Mg Tablet 10 MG PO Q6H PRN PRN For Pain General Time Seen by MD: 15:59 Chief Complaint Abdominal pain Hx Obtained From: Patient Sudden in Onset?: No Location: : RLQ Past Medical History Past Medical History Atrial fibrillation PE (2007) CHF HTN CVA (08/2016) Chronic back pain Reports: Asthma, Denies: Diabetes mellitus, Hypertension Past Surgical History Cholecystectomy Hysterectomy Cystocele Rectocele Foot Smoking History Former Smoker (quit in 1984) Social History Alcohol Use: "Social" Drug Use: Denies drug use Occupation live by self no steps into house , lives at [facility] 07/28/2017 Ambulatory Status Independent Review of Systems Basic Review of Systems Eyes: Vision NL, No discharge Skin: No bruising, No rash, No itch Psychiatric: Normal thought content Physical Exam Vital Signs Vital Signs (First) Date Time Temp Pulse Resp B/P Pulse Ox O2 Delivery O2 Flow Rate FiO2 07/28/17 14:07 36.8 77 15 119/79 98 Room Air Initial VS: Reviewed, Vital signs normal Head / Eyes: Atraumatic, Normocephalic, PERRL ENT: Mucous membranes moist, Conjunctiva normal, No scleral icterus Neck: Supple, Non-tender, Full range of motion Lymphatic: No lymphadenopathy Extremities: Vascular intact, Neuro intact, No swelling, No tenderness Skin: Warm, Dry, No cyanosis Neurologic: Alert, Oriented, Nonfocal Psychiatric: Mood/affect normal, Behavior normal, Normal thought content General/Constitutional: Awake, Alert, No acute distress, Well appearing, Well developed, Well hydrated, Well nourished, Cooperative, Not toxic appearing Respiratory / Chest: Atraumatic, Breath sounds NL, Breath sounds = bilat, No respiratory distress, No rales, No rhonchi Cardiovascular: Heart rate NL, Regular rhythm, Heart sounds NL, No gallop Abdomen: Atraumatic, Soft Tenderness/Guarding/Rebound: Positive: Tender RLQ... (Mild) Back: Atraumatic, Inspection NL, Full range of motion Interpretation & Diagnostics Lab Results Interpretation Result Diagram: 07/28/17 1428 07/28/17 1428 Test 07/28/17 14:28 White Blood Count 8.5th/mm3 (3.8-10.1) Red Blood Count 4.44mil/mm3 (3.90-5.20) Hemoglobin 12.6g/dL (12.0-15.6) Hematocrit 39.1% (35.0-46.0) Mean Corpuscular Volume 88.1fL (81-100) Mean Corpuscular Hemoglobin 28.4pg (27.0-35.0) Mean Corpuscular Hemoglobin Concent 32.2% (32.0-37.0) Red Cell Distribution Width 15.0% (12.3-15.4) Platelet Count 223bil/L (150-400) Neutrophils (%) (Auto) 69.7% (40-74) Lymphocytes (%) (Auto) 19.9% (14-46) Monocytes (%) (Auto) 6.5% (4-12) Eosinophils (%) (Auto) 3.1% (0-5) Basophils (%) (Auto) 0.6% (0-3) Sodium Level 140mEq/L (134-144) Potassium Level 4.1mEq/L (3.5-5.2) Chloride Level 99mEq/L (97-108) Carbon Dioxide Level 30mmol/L (18-29) Blood Urea Nitrogen 11mg/dL (8-27) Creatinine 0.71mg/dL (0.57-1.00) Estimat Glomerular Filtration Rate 114mL/min (>59) Glucose Level 84mg/dL (60-99) Lactic Acid Level < 0.2mmol/L (0.4-2.0) Calcium Level 9.5mg/dL (8.5-10.1) Magnesium Level 1.6mg/dL (1.6-2.6) Total Bilirubin 0.7mg/dL (0.0-1.2) Aspartate Amino Transf (AST/SGOT) 14U/L (0-50) Alanine Aminotransferase (ALT/SGPT) 9U/L (0-32) Alkaline Phosphatase 76U/L (25-165) Troponin T < 0.010ug/L (0.0-0.011) Total Protein 7.2g/dL (6.4-8.4) Albumin 3.9g/dL (3.4-5.0) Lipase 7U/L (13-60) Hold Pettit Top Tube Received (Received) CT Abd / Pelvis Interpretation PROCEDURE: CT ABDOMEN AND PELVIS WITH CONTRAST ([id number]) INDICATIONS: abd pain TECHNIQUE: After the administration of intravenous contrast, 5 mm thick sections acquired from the diaphragm to the symphysis. 5 mm coronal and sagittal reformats were acquired. For radiation dose reduction, the following was used: automated exposure control, adjustment of mA and/or kV according to patient size. COMPARISON: [facility], CT, CT ABD PELVIS W CON, 04/22/2017, 0:24. FINDINGS: Image quality: Excellent. ABDOMEN: Lung bases: Lung bases are clear. Heart size is enlarged. Solid organs: Liver and spleen are normal in size and enhancement. Gallbladder is surgically absent. There is mild to moderate biliary ductal dilatation unchanged in extent when compared with the study dated 04/22/17. Pancreas enhances normally. No adrenal nodules. Kidneys demonstrate normal size and enhancement, without hydronephrosis. Peritoneum and bowel: The stomach is partially fluid filled. The proximal and midportion of the small bowel is decompressed. The distal small bowel is filled with solid appearing stool suggesting slow transit. The distal small bowel is dilated. There is a right-sided spigelian hernia which contains a loop of distal small bowel. The herniated bowel is decompressed. No mucosal thickening to suggest ischemia. Nodes and vessels: No retroperitoneal or mesenteric adenopathy by size criteria. Aorta and inferior vena cava are normal in size. There are scattered atheromatous calcifications throughout the aorta and iliac arteries bilaterally. Miscellaneous: No ventral hernias. PELVIS: Genitourinary: Bladder wall thickness is normal. Uterus and ovaries are not visualized. Miscellaneous: No inguinal adenopathy. There is a small fat and fluid containing right inguinal hernia. Bones: No suspicious bony lesions. No vertebral body compression fractures. Severe degenerative change and spondylolisthesis is present within the lower lumbar spine IMPRESSION: 1. Right, small bowel-containing spigelian hernia with findings suspicious for early small bowel obstruction. No mucosal thickening to suggest ischemia. Surgery consultation recommended. These findings were discussed with RODRIGUEZ Nazario at 5:46 PM on 07/28/17. 2. Mild to moderate intrahepatic biliary ductal dilatation unchanged from the study dated 04/22/17. Although this may be related to postoperative changes and patient age, if further characterization is warranted, a nonemergent right upper quadrant ultrasound or MRCP may be helpful to exclude central biliary obstruction. Dictated by: Elina Jerome M.D. on 07/28/2017 at 17:40 Approved by: Elina Jerome M.D. on 07/28/2017 at 17:50 Re-Eval/Medical Decision Med Decision/Clinical Course 77 year old female presents for evualation of abd pain since Thursday. Patient states this has been off and on for years. No sign of abscess or free air. CT shows Spigelian hernia. Dr. Gabriel is notified and he presents to the ER to evualate patient. He feels she can go home and surgery can be scheduled on a outpatient/scheduled surgery. Discharge & Departure Primary Impression: Spigelian hernia Disposition: Home Additional Instructions: The CT shows a spigelian hernia on the right side. You have been seen and examined by , the surgeon institutional research coordinator. He would like you to call the office and schedule the schedule on an outpatient/scheduled admission.Continue with your pain medications. If you have pain the is not controlled with your pain medication, vomiting or any other concerning symptoms, return to the ER. Referrals: Josh Nye ND (PCP) James Gabriel MD EDSupervising Provider for APC: Gary Gallardo MD copies to: Josh Nye ND; James Gabriel MD, Sue [facility] Jul 28, 2017 16:00
[2017-07-28] MEDS ORDERED: oxyCODONE-Acetamin 10-325 mg Tablet PO ONE (16:15)
[2017-07-28 17:48] VITALS: BP 132/72; PULSE 64; RESP 18; O2SAT 99
--- NOTE | 2017-07-28 17:52 | DRSVH ---
PROCEDURE: CT ABDOMEN AND PELVIS WITH CONTRAST ([id number]) INDICATIONS: abd pain TECHNIQUE: After the administration of intravenous contrast, 5 mm thick sections acquired from the diaphragm to the symphysis. 5 mm coronal and sagittal reformats were acquired. For radiation dose reduction, the following was used: automated exposure control, adjustment of mA and/or kV according to patient martin e. COMPARISON: [facility], CT, CT ABD PELVIS W CON, 04/22/2017, 0:24. FINDINGS: Image quality: Excellent. ABDOMEN: Lung bases: Lung bases are clear. Heart size is enlarged. Solid organs: Liver and spleen are normal in size and enhancement. Gallbladder is surgically absent . There is mild to moderate biliary ductal dilatation unchanged in extent when compared with the stud y dated 04/22/17. Pancreas enhances normally. No adrenal nodules. Kidneys demonstrate normal size an d enhancement, without hydronephrosis. Peritoneum and bowel: The stomach is partially fluid filled. The proximal and midportion of the small bowel is decompressed. The distal small bowel is filled with solid appearing stool suggesting slow t ransit. The distal small bowel is dilated. There is a right-sided spigelian hernia which contains a l oop of distal small bowel. The herniated bowel is decompressed. No mucosal thickening to suggest isch emia. Nodes and vessels: No retroperitoneal or mesenteric adenopathy by size criteria. Aorta and inferior vena cava are normal in size. There are scattered atheromatous calcifications throughout the aorta and iliac arteries bilaterally. Miscellaneous: No ventral hernias. PELVIS: Genitourinary: Bladder wall thickness is normal. Uterus and ovaries are not visualized. Miscellaneous: No inguinal adenopathy. There is a small fat and fluid containing right inguinal collins ia. Bones: No suspicious bony lesions. No vertebral body compression fractures. Severe degenerative ch shan and spondylolisthesis is present within the lower lumbar spine IMPRESSION: 1. Right, small bowel-containing spigelian hernia with findings suspicious for early small bowel obst ruction. No mucosal thickening to suggest ischemia. Surgery consultation recommended. These findings were discussed with RODRIGUEZ Nazario at 5:46 PM on 07/28/17. 2. Mild to moderate intrahepatic biliary ductal dilatation unchanged from the study dated 04/22/17. Al though this may be related to postoperative changes and patient age, if further characterization is w arranted, a nonemergent right upper quadrant ultrasound or MRCP may be helpful to exclude central cami iary obstruction. Dictated by: Elina Jerome M.D. on 07/28/2017 at 17:40 Approved by: Elina Jerome M.D. on 07/28/2017 at 17:50
[2017-07-28 19:19] VITALS: BP 131/84; PULSE 99; RESP 16; O2SAT 96
--- NOTE | 2017-07-28 21:40 | CONS ---
[address] [address] CONSULTATION REPORT PATIENT: ITALO DUFF : 1940 MR#: [id number] ADMIT: 07/28/2017 JOB ID: [id number] DATE OF SERVICE: 07/28/2017 CHIEF COMPLAINT/IDENTIFICATION: Dr. Danielle Guzman in the emergency department has asked me to consult on this 77-year-old woman with right lower quadrant pain and a hernia. HISTORY OF PRESENT ILLNESS: The patient was seen by nurse practitioner in the GI Clinic for a chronic right-sided abdominal pain that has been present for several months, worse over the past several weeks, sometimes associated with focal fullness. She was seen in consultation by Gastroenterology who felt that she had a hernia and sent her to the emergency department. The patient tells me that she had a normal bowel movement today, is passing gas, has not been vomiting except for some heartburn-type reflux. She feels that her pain is better now that she has been lying down. PAST MEDICAL HISTORY: 1. History of atrial fibrillation. 2. History of stroke while on Coumadin. 3. History of pulmonary embolus in 2007/ . CHF. 5. Hypertension. 6. Chronic back pain on chronic narcotics. 7. Status post cholecystectomy. 8. Status post hernia in her right upper quadrant incision with a previous hernia repair. 9. Status post hysterectomy. 10. History of cystocele and rectocele surgery. MEDICATIONS: 1. Atorvastatin. 2. Diltiazem. 3. Furosemide. 4. Latanoprost. 5. Losartan. 6. Pantoprazole. 7. Warfarin. ALLERGIES: PENICILLIN. SOCIAL HISTORY: She lives by herself, lives in [place] [facility], is seen with her granddaughter and great grandchildren in the emergency department. She is an ex-smoker, does not drink alcohol on a daily basis. REVIEW OF SYSTEMS: Per Danielle Guzman's note. PHYSICAL EXAMINATION: Pleasant, slender woman in no acute distress. BMI is recorded at 28.6. Vital signs are within normal limits. Heart and lungs are unremarkable. Her abdomen is soft with a palpable reducible hernia in the right lower quadrant consistent with her previous surgery. LABORATORY DATA: White count is normal at 8.5, hematocrit is 39. Chemistries are normal. Coagulations were not checked. IMAGING: I have reviewed her CT scan, the films and the report. This demonstrates a right lower quadrant hernia with small bowel in it but no obstruction. IMPRESSION AND PLAN: This is a 77-year-old patient with a recurrent incisional hernia in the right lower abdomen. Her situation is complicated by her anticoagulation. There is no indication for emergency repair, and her outcome will be better if she has an elective repair of this incisional hernia. I have recommended that she have this done sometime within the next month or two and will have our surgery office call her tomorrow morning to arrange followup. Discussed with Danielle Guzman.
== END 2017-07-28 19:51 | disposition home or self-care (01) ==
LOC: SED 13:57
DX: K43.9 Ventral hernia without obstruction or gangrene (principal); R63.0 Anorexia; I10 Essential (primary) hypertension; I50.9 Heart failure, unspecified; I48.91 Unspecified atrial fibrillation; J45.909 Unspecified asthma, uncomplicated; Z86.73 Personal history of transient ischemic attack (TIA), and cerebral infarction without residual deficits; Z90.49 Acquired absence of other specified parts of digestive tract; Z90.710 Acquired absence of both cervix and uterus; Z87.891 Personal history of nicotine dependence; Z79.01 Long term (current) use of anticoagulants; Z88.0 Allergy status to penicillin
CPT/HCPCS: 36415; 74177; 80053; 83605; 83690; 83735; 84484; 85025; 93005; 99285; G0463; Q9967